=== PATIENT | female | born 1945 | race Caucasian/White ===

== ENCOUNTER → 2018-01-04 11:22 | Outpatient (REF) | payer MEDICARE, SELFPAY ==
[2018-01-04 14:04] LABS: Basophils # 0.1 K/mm3 (0-0.2); Basophils % 1.3 % (0.1-2.0); Eosinophils # 0.3 K/mm3 (0.0-0.4); Eosinophils % 4.2 % (0.1-12.0); Hematocrit 48.7 % (37.0-47.0); Hemoglobin 14.9 g/dL (12.2-16.2); Lymphocytes % 26.8 K/mm3 (10-50); Mean Corpuscular HGB Conc 30.6 g/dL (31.8-35.4); Mean Corpuscular Hemoglobin 26.2 pg (27.0-31.2); Mean Corpuscular Volume 85.8 fl (81-99); Mean Platelet Volume 8.5 fl (7.4-10.4); Monocytes # 0.5 K/mm3 (0.1-1.0); Monocytes % 6.2 % (1.7-9.3); Neutrophils # 4.6 K/mm3 (1.8-7.8); Neutrophils % 61.6 % (37.0-80.0); Platelet Count 338 K/mm3 (142-424); Red Blood Count 5.68 M/mm3 (4.20-5.40); Red Cell Distribution Width 13.7 % (11.5-17.5); White Blood Count 7.5 K/mm3 (4.8-10.8)
[2018-01-04 15:57] LABS: Alanine Aminotransferase 29 U/L (12-78); Albumin Level 4.1 gm/dL (3.4-5.0); Alkaline Phosphatase 66 U/L (46-116); Anion Gap 13.9 mEq/L (5-15); Aspartate Amino Transferase 19 U/L (15-37); Bilirubin,Total 0.3 mg/dL (0.2-1.0); Blood Urea Nitrogen 19 mg/dL (7-18); Calcium 11.8 mg/dL (8.5-10.1); Carbon Dioxide 26 mmol/L (21.0-32.0); Chloride 102 mmol/L (98-107); Chol/HDL Ratio 4.6 (1-3.5); Cholesterol 237 mg/dL (140-200); Creatinine,Serum 0.91 mg/dL (0.55-1.02); Estimated Glomerular Filt Rate 61 ml/min (>60); GFR (African American) 74 ML/MIN (>60); Glucose 103 mg/dL (74-106); HDL Cholesterol 52 mg/dL (29-89); LDL Cholesterol 158 mg/dL (0-130); Potassium 4.9 mmoL/L (3.5-5.1); Sodium 137 mmol/L (136-145); T4 (Thyroxine) 11.7 ug/dl (4.7-13.3); Total Protein,Serum 8.1 gm/dL (6.4-8.2); Triglycerides 137 mg/dL (30-200); VLDL Cholesterol 27 mg/dL (0-40)
[2018-01-04 16:34] LABS: Amphetamine/Metha Screen,Urine Negative ng/mL (<1000); Barbiturates Screen,Urine Negative ng/mL (<200); Benzodiazepines Screen,Urine Negative ng/mL (200); Cannabinoid Screen,Urine Negative ng/mL (<50); Cocaine Screen,Urine Negative ng/g (<300); Methadone Screen,Urine Negative ng/mL (<300); Opiate Screen,Urine Negative ng/mL (<300); Phencyclidine Screen,Urine Negative ng/mL (<25)
[2018-01-06 08:05] LABS: Vitamin D 25 Hydroxy 37.4 ng/mL (30.0-100.0)
== END ==
LOC: LAB 11:22
PROVIDERS: Visit Provider Nurse Practitioner Family
DX: I10 Essential (primary) hypertension (principal); Z79.899 Other long term (current) drug therapy
CPT/HCPCS: 80053; 80061; 80305; 82652; 84436; 84443; 85025

== ENCOUNTER → 2018-10-25 10:13 | Outpatient (CLI) | payer MEDICARE, SELFPAY ==
[2018-10-25 10:44] LABS: Basophils # 0.1 K/mm3 (0-0.2); Basophils % 0.5 % (0.1-2.0); Eosinophils # 0.2 K/mm3 (0.0-0.4); Eosinophils % 1.5 % (0.1-12.0); Hematocrit 42.6 % (37.0-47.0); Hemoglobin 13.8 g/dL (12.2-16.2); Lymphocytes # 2.5 K/mm3 (0.7-4.5); Lymphocytes % 25.7 % (10-50); Mean Corpuscular HGB Conc 32.4 g/dL (31.8-35.4); Mean Corpuscular Hemoglobin 27.5 pg (27.0-31.2); Mean Corpuscular Volume 84.8 fl (81-99); Monocytes # 0.7 K/mm3 (0.1-1.0); Monocytes % 7.3 % (1.7-9.3); Neutrophils # 6.3 K/mm3 (1.8-7.8); Neutrophils % 64.9 % (37.0-80.0); Platelet Count 280 K/mm3 (142-424); Red Blood Count 5.03 M/mm3 (4.20-5.40); Red Cell Distribution Width 14.1 % (11.5-17.5); White Blood Count 9.7 K/mm3 (4.8-10.8)
[2018-10-25 11:26] LABS: Alanine Aminotransferase 35 U/L (12-78); Albumin Level 3.8 gm/dL (3.4-5.0); Alkaline Phosphatase 63 U/L (46-116); Anion Gap 11.2 mEq/L (5-15); Aspartate Amino Transferase 17 U/L (15-37); Bilirubin,Total 0.3 mg/dL (0.2-1.0); Blood Urea Nitrogen 18 mg/dL (7-18); Calcium 11.3 mg/dL (8.5-10.1); Carbon Dioxide 29 mmol/L (21.0-32.0); Chloride 104 mmol/L (98-107); Cholesterol 233 mg/dL (140-200); Creatinine,Serum 0.91 mg/dL (0.55-1.02); Estimated Glomerular Filt Rate 61 ml/min (>60); Free T4 (Free Thyroxine) 0.96 ng/dl (0.76-1.46); GFR (African American) 74 ML/MIN (>60); Glucose 75 mg/dL (74-106); HDL Cholesterol 58 mg/dL (29-89); LDL Cholesterol 153 mg/dL (0-130); Potassium 4.2 mmoL/L (3.5-5.1); Sodium 140 mmol/L (136-145); Thyroid Stimulating Hormone 0.82 uIU/ml (0.358-3.740); Total Protein,Serum 7.8 gm/dL (6.4-8.2); Triglycerides 110 mg/dL (30-200); VLDL Cholesterol 22 mg/dL (0-40)
[2018-10-25 11:27] LABS: C-Reactive Protein < 0.2 mg/L (0.0-0.9)
[2018-10-25 11:34] LABS: Erythrocyte Sedimentation Rate 32 mm/hr (0-30)
[2018-10-26 12:46] LABS: Vitamin D 25 Hydroxy 34.3 ng/mL (30.0-100.0)
== END ==
PROVIDERS: Visit Provider Nurse Practitioner Family
DX: R53.83 Other fatigue (principal); M25.50 Pain in unspecified joint; E78.5 Hyperlipidemia, unspecified; M25.532 Pain in left wrist
CPT/HCPCS: 36415; 80053; 80061; 82652; 84439; 84443; 85025; 85651; 86140

== ENCOUNTER 2019-12-05 13:57 | Emergency (ER) | payer MEDICARE, SELFPAY ==
--- NOTE | 2019-12-05 14:11 | XR_ITS ---
PROCEDURE: XR WRIST RT MIN 3V CLINICAL INDICATION: PAIN COMPARISON: No exams were available for comparison FINDINGS: There are mild osteoarthritic changes at the navicular trapezium joint and 1st metacarpal-carpal joint. No fracture or dislocation. No lytic or blastic change. IMPRESSION: Mild osteoarthritis Dictated by: Des Moore MD 12/05/2019 15:08 Electronically signed by Des Moore MD in [place] 12/05/2019 15:08
[2019-12-05 14:17] VITALS: BP 116/61; PULSE 96; RESP 22; TEMP 36.8; O2SAT 95; BMI 30.2
--- NOTE | 2019-12-05 14:33 | HMH.EDUTC ---
[facility] – [place], [place] Disposition Condition on Discharge: Good Time of Disposition: 15:07 <Gretta Juarez - Last Filed: 12/05/19 15:08> Condition on Discharge: Good <Blaine Dominguez - Last Filed: 12/05/19 16:19> Clinical Impression: Osteoarthritis Wrist pain Qualifiers: Laterality: right Qualified Code(s): M25.531 - Pain in right wrist Disposition: Still a Patient Instructions: DI for Acute Pain -- Adult Prescriptions: Nabumetone 750 mg PO BID 30 Days #60 tab Transmission Status: Pending to [facility] Referrals: Wilmar Cross MD [Primary Care Provider] - As needed Medical Decision Making - Moo Inquiry Pt receiving controlled substance: No Moo was queried for this patient: No - Radiology Data #1 Image(s): Wrist Image Reviewed: Yes I reviewed the patient's radiology image - Reevaluation(s) Time: 15:00 <Gretta Juarez - Last Filed: 12/05/19 15:08> - CT Data CT Scan: Other (Wrist) Time Received: 16:[address] Reviewed: Yes: I have reviewed the patient's CT results Preliminary Findings: Abnormal (Arthritis) <Blaine Dominguez - Last Filed: 12/05/19 16:19> Vital Signs: 12/05/19 14:17 12/05/19 15:13 Temperature 98.2 F 98.2 F Temperature Source Oral Oral Pulse Rate [Right Brachial] 96 H 96 H Respiratory Rate 22 22 Blood Pressure [Right Arm] 116/61 116/61 Blood Pressure Mean [Right Arm] 79 79 Blood Pressure Source [Right Arm] Automatic Cuff Automatic Cuff Blood Pressure Position [Right Arm] Sitting Sitting 02 Sat by Pulse Oximetry 95 95 Oxygen Delivery Method Room Air Room Air - Radiology Data #1 Irregularity noted in wrist, arthritis, discussed with ED physician and patient being transferred to ED for CT of wrist for further evaluation (Gretta Juarez) - Reevaluation(s) Reevaluation #1: Notes viewed from previous visit with PCP in Jul 2019 patient had similar complaints of wrist pain/swelling. Spoke with ER physician Dr Dominguez and he looked at xray and recommended that patient be transferred to ED for CTscan of wrist due to having pain and swelling on and off for 6mths. Patient states that she is unsure if her insurance will cover, Spoke with someone about her insurance and it would cover ER so patient agreed to go, called ED and patient was placed in room 10 (Gretta Juarez) [facility] – [place], [place] HPI - General Mode of Arrival: Ambulatory Source of Information: Patient Limitations: No Limitations Description of Symptoms (Recalled from Triage Doc. by RN): PATIENT C/O RIGHT WRIST PAIN X 1 MONTH, NO KNOWN INJURY. SHE STATES SHE SAW HER PCP FOR IT WHO SENT HER FOR X-RAY, HOWEVER PATIENT NEVER CAME HERE TO GET THE X-RAY. CAP REFILL <3 AND POSITIVE RADIAL PULSE HEENT Symptoms (Recalled from RN notes): No Resp Symptoms (Recalled from RN notes): No Skin Symptoms (Recalled from RN notes): No MS Symptoms (Recalled from RN notes): Yes Functional Status (Recalled from RN notes): WNL - History of Present Illness Provider Complaint: Patient states that she seen PCP she thinks about a month ago for same complaint States that she has been having pain and swelling in her right wrist States that at times pain and swelling is worse States that PCP wanted her to have and xray but she didnt come and get it because it started feeling better but now it is hurting and swelling again so she came in to get it checked Denies known injury States that pain this time started after moving some furniture around and pain is worse with movement - Worker's Comp Is this a Worker's Comp case?: No <Gretta Juarez - Last Filed: 12/05/19 15:08> <Blaine Dominguez - Last Filed: 12/05/19 16:19> - General Stated complaint: right wrist swollen hurts Time Seen by Provider: 12/05/19 14:20 - Related Data Home Medications Medication Instructions Recorded Confirmed Atorvastatin Calcium [Atorvastatin See Rx Instructions .ROUTE .COMPLEX 12/05/19 12/05/19 10mg Tab] Lisinopril/Hydrochlorothiazide See Rx Instructions .ROUTE .C
--- NOTE | 2019-12-05 15:05 | PC.NURSE ---
PATIENT SENT TO ER PER Dewayne ORTEGA APRN FOR FURTHER EVALUATION AND CT
[2019-12-05 15:13] VITALS: BP 116/61; PULSE 96; RESP 22; TEMP 36.8; O2SAT 95; BMI 30.2
--- NOTE | 2019-12-05 15:16 | CT_ITS ---
PROCEDURE: CT WRIST RT WO CON CLINICAL HISTORY: pain Severe wrist pain, COMPARISON: XR WRIST RT MIN 3V from 12/05/2019 TECHNIQUE: Axial images obtained with sagittal and coronal reformats. All CT scans at the facility use one or more dose reduction, viz: automated exposure control, ma/kV adjustment per patient size (including targeted exams where dose is matched to indication, i.e. head), or iterative reconstruction technique. FINDINGS: There are osteoarthritic changes of the 1st metacarpal-carpal joint and the scapho trapezium joint. Small calcific density is present at the tip of the ulnar styloid process which could represent an avulsion injury possibly old. Please correlate with clinical findings. Cystic changes are present involving the lunate and the trapezium. No abnormal fluid collections or other significant anomalies are evident. IMPRESSION: Mild osteoarthritic changes. Nonspecific cystic changes of the trapezium and lunate. Small calcific density at the ulnar styloid which may represent an old injury. Dictated by: Des Moore MD 12/05/2019 15:56 Electronically signed by Des Moore MD in [place] 12/05/2019 15:56
[2019-12-05 16:27] VITALS: BP 132/70; PULSE 92; RESP 18; TEMP 36.8; O2SAT 98
== END 2019-12-05 16:29 | disposition home or self-care (01) ==
LOC: UTC 15:08 → ER 15:09
PROVIDERS: Emergency Provider Family Medicine; PCP Emergency Medicine
DX: M25.531 Pain in right wrist (principal); M19.90 Unspecified osteoarthritis, unspecified site; F17.210 Nicotine dependence, cigarettes, uncomplicated
CPT/HCPCS: 73110; 73200; 99282

== ENCOUNTER → 2020-03-18 08:54 | Outpatient (CLI) | payer MEDICARE, SELFPAY ==
[2020-03-18 12:11] LABS: Coronavirus 19 IgG Antibody Negative (Negative); Coronavirus 19 IgM Antibody Negative (Negative)
== END ==
PROVIDERS: Visit Provider Ophthalmology
DX: Z01.818 Encounter for other preprocedural examination (principal)
CPT/HCPCS: 36415; 86328

== ENCOUNTER 2020-03-19 08:50 | Day surgery (SDC) | payer MEDICARE, SELFPAY ==
[2020-03-13 10:42] VITALS: BMI 32.2
[2020-03-19 09:25] VITALS: BP 139/72; PULSE 82; RESP 18; TEMP 36.4; O2SAT 82
[2020-03-19 10:17] VITALS: BP 118/59; PULSE 86; RESP 24; O2SAT 98
== END 2020-03-19 10:17 | disposition home or self-care (01) ==
LOC: OUTP 08:52
PROVIDERS: PCP Emergency Medicine; Visit Provider Ophthalmology
PROC: (CPT 66821; principal; 2020-03-19 09:30)
DX: H57.89 Other specified disorders of eye and adnexa (principal); Z96.1 Presence of intraocular lens; H02.839 Dermatochalasis of unspecified eye, unspecified eyelid; I10 Essential (primary) hypertension; E78.5 Hyperlipidemia, unspecified; M19.90 Unspecified osteoarthritis, unspecified site; Z79.899 Other long term (current) drug therapy; H26.493 Other secondary cataract, bilateral
CPT/HCPCS: 66821

== ENCOUNTER → 2021-02-07 16:56 | Outpatient (CLI) | payer MEDICARE, SELFPAY ==
[2021-02-07 17:25] LABS: Basophils # 0.1 K/mm3 (0-0.2); Basophils % 0.7 % (0.1-2.0); Eosinophils # 0.2 K/mm3 (0.0-0.4); Eosinophils % 2.7 % (0.1-12.0); Hematocrit 41.3 % (37.0-47.0); Hemoglobin 13.7 g/dL (12.2-16.2); Lymphocytes # 2.2 K/mm3 (0.7-4.5); Lymphocytes % 28.1 % (10-50); Mean Corpuscular HGB Conc 33.1 g/dL (31.8-35.4); Mean Corpuscular Hemoglobin 27.8 pg (27.0-31.2); Mean Corpuscular Volume 84.1 fl (81-99); Mean Platelet Volume 8.6 fl (7.4-10.4); Monocytes # 0.7 K/mm3 (0.1-1.0); Monocytes % 8.4 % (1.7-9.3); Neutrophils # 4.8 K/mm3 (1.8-7.8); Neutrophils % 60.1 % (37.0-80.0); Platelet Count 306 K/mm3 (142-424); Red Blood Count 4.91 M/mm3 (4.20-5.40); Red Cell Distribution Width 13.8 % (11.5-17.5)
[2021-02-07 17:29] LABS: Alanine Aminotransferase 17 U/L (12-78); Albumin Level 3.8 g/dl (3.5-5.0); Albumin/Globulin Ratio 1.2 (1.1-1.8); Alkaline Phosphatase 67 U/L (38-126); Anion Gap 12.6 mEq/L (5-15); Aspartate Amino Transferase 25 U/L (14-36); Bilirubin,Total 0.4 mg/dl (0.2-1.3); Blood Urea Nitrogen 20 mg/dl (7-17); Calcium 10.7 mg/dl (8.4-10.2); Carbon Dioxide 26 mmol/L (22.0-30.0); Chloride 104 mmol/L (98-107); Chol/HDL Ratio 3.9 (1-3.5); Cholesterol 154 mg/dl (140-200); Estimated Glomerular Filt Rate 70 ml/min (>60); GFR (African American) 85 ML/MIN (>60); Globulin 3.1 g/dL (1.3-3.2); Glucose 121 mg/dl (74-100); HDL Cholesterol 40 mg/dl (40-60); Potassium 4.6 mmoL/L (3.5-5.1); Sodium 138 mmol/L (136-145); Total Protein,Serum 6.9 g/dl (6.3-8.2); Triglycerides 234 mg/dl (30-150); VLDL Cholesterol 47 mg/dL (0-40)
[2021-02-07 17:39] LABS: Direct LDL Cholesterol 83.18 mg/dL (100-129)
[2021-02-07 17:45] LABS: 25-OH Vitamin D, Total 37.9 ng/mL (30-100); T4 (Thyroxine) 10.4 ug/dl (5.53-11.0)
[2021-02-07 17:58] LABS: Thyroid Stimulating Hormone 0.97 uIU/mL (0.465-4.68)
== END ==
PROVIDERS: Visit Provider Nurse Practitioner Family
DX: E78.5 Hyperlipidemia, unspecified (principal); M19.90 Unspecified osteoarthritis, unspecified site; R53.83 Other fatigue; E83.52 Hypercalcemia; M25.531 Pain in right wrist; E66.3 Overweight; Z68.32 Body mass index [BMI] 32.0-32.9, adult; F17.210 Nicotine dependence, cigarettes, uncomplicated
CPT/HCPCS: 80053; 80061; 82306; 84436; 84443; 85025

== ENCOUNTER 2021-02-16 12:49 | Emergency (ER) | payer MEDICARE, SELFPAY ==
--- NOTE | 2021-02-16 12:53 | XR_ITS ---
PROCEDURE INFORMATION: Exam: XR Left Knee Exam date and time: 02/16/2021 12:53 PM Age: 75 years old Clinical indication: Pain; Knee; Left; Additional info: Pain and swelling TECHNIQUE: Imaging protocol: XR Left knee. Views: 3 views. COMPARISON: No relevant prior studies available. FINDINGS: Bones/joints: No acute fracture or dislocation. Knee joint spaces are well preserved. Tiny periarticular spurs of the medial femoral condyle and medial tibial plateau, and at the superior pole of the patella. Moderately large knee joint effusion.There are no lytic skeletal lesions seen. Soft tissues: Medial soft tissue swelling. Vasculature: Atherosclerotic calcified plaques in the superficial femoral artery. IMPRESSION: 1. No acute fracture or dislocation. 2. Moderately large knee joint effusion. 3. Minimal degenerative spurring in the knee and patellofemoral joint. No significant joint narrowing. 4. Atherosclerotic disease. 5. Soft tissue swelling.
[2021-02-16 13:26] VITALS: BP 103/66; PULSE 84; RESP 16; TEMP 36.6; O2SAT 97; BMI 32.4
--- NOTE | 2021-02-16 13:29 | HMH.EDUTC ---
[facility] Disposition Clinical Impression: Osteoarthritis Qualifiers: Osteoarthritis location: knee Osteoarthritis type: primary Laterality: left Qualified Code(s): M17.12 - Unilateral primary osteoarthritis, left knee Disposition: Home, Self-Care Condition on Discharge: Good Instructions: Osteoarthritis Additional Instructions: Weight bearing as tolerated rest Ice with cold pack for 20 minutes remove may repeat for comfort every hour Obed wrap for support and swelling no less in the shower. Be sure not too tight but not to lose either Elevate with leg above your heart as much as possible to help reduce swelling and therefore pain Ibuprofen every 6 hours as needed for pain or inflammation. If needs something more you can take Tylenol every 4 hours as needed If improving any do not need to follow-up you can bring begin exercising 2-3 weeks after injury. Follow-up immediately if new or worsening symptoms or no noticeable improvement over the next 3-5 days. call pcp tomorrow for appointment Prescriptions: predniSONE [Prednisone 20mg Tab] 20 mg PO BID #10 tab Transmission Status: Pending to [facility] Referrals: Wilmar Cross MD [Primary Care Provider] - Time of Disposition: 13:35 Medical Decision Making - Moo Inquiry Pt receiving controlled substance: No Vital Signs: 02/16/21 13:26 Temperature 97.8 F Temperature Source Oral Pulse Rate [Right Brachial] 84 Respiratory Rate 16 Blood Pressure [Right Arm] 103/66 L Blood Pressure Mean [Right Arm] 78 Blood Pressure Source [Right Arm] Automatic Cuff Blood Pressure Position [Right Arm] Sitting 02 Sat by Pulse Oximetry 97 Oxygen Delivery Method Room Air Orders (Tests/Meds): ORDERS Category Date Time Status XR knee LT 3V Stat Exams 02/16/21 12:53 Taken [facility] HPI - General Chief complaint: Urgent [facility] Stated complaint: Lt knee swollen, unknown origin Time Seen by Provider: 02/16/21 13:29 Mode of Arrival: Ambulatory Source of Information: Patient Limitations: No Limitations Description of Symptoms (Recalled from Triage Doc. by RN): PATIENT C/O SWELLING TO LEFT KNEE X 1 WEEK HEENT Symptoms (Recalled from RN notes): No Resp Symptoms (Recalled from RN notes): No Skin Symptoms (Recalled from RN notes): No MS Symptoms (Recalled from RN notes): Yes Functional Status (Recalled from RN notes): WNL - History of Present Illness Provider Complaint: 75 yr old female presents for left knee pain for 1 week. pt states no known injury. pt states pain with walking - Related Data Previous Rx's Medication Instructions Recorded atorvastatin 10 mg tablet See Rx Instructions .ROUTE 11/21/20 .COMPLEX #90 tab lisinopril 20 See Rx Instructions .ROUTE 11/21/20 mg-hydrochlorothiazide 12.5 mg .COMPLEX #90 tab tablet albuterol sulfate 90 mcg/actuation 2 puff INHALATION Q4-6H PRN #6.7 g 02/07/21 aerosol inhaler fluticasone furoate 100 1 inh INHALATION DAILY #28 each 02/07/21 mcg-vilanterol 25 mcg/dose inhalation powder predniSONE [Prednisone 20mg 20 mg PO BID #10 tab 02/16/21 Tab] Allergies Allergy/AdvReac Type Severity Reaction Status Date / Time No Known Allergies Allergy Verified 02/07/21 15:04 - Worker's Comp Is this a Worker's Comp case?: No [facility] [place] History - Hepatitis A Screen Drug use history?: No High risk sexual behaviors?: No History of sexually transmitted infection?: No Currently employed?: No Childcare worker?: No Do you have indoor plumbing?: Yes Do you have electricity?: Yes Attestation statement:: This patient has been screened for Hepatitis A risk factors. I have reviewed the patient's past medical history: Yes Medical History: Reports:: Hyperlipidemia, Hypertension Denies:: Cancer, Diabetes Mellitus Type 1, Diabetes Mellitus Type 2, Internal Pacemaker, MRSA, Seizures Comment: Arthritis, Veins pop easy Laterality Cases: Bilateral: Tonsillectomy Other Surgeries: Yes: Hysterect
[2021-02-16 13:38] VITALS: BP 103/66; PULSE 84; RESP 16; TEMP 36.6; O2SAT 97
== END 2021-02-16 13:47 | disposition home or self-care (01) ==
PROVIDERS: Emergency Provider Nurse Practitioner Family; PCP Emergency Medicine
DX: M17.12 Unilateral primary osteoarthritis, left knee (principal); I10 Essential (primary) hypertension; E78.5 Hyperlipidemia, unspecified; F17.210 Nicotine dependence, cigarettes, uncomplicated; Z79.899 Other long term (current) drug therapy
CPT/HCPCS: G0463; 73562; 96372; 99202

== ENCOUNTER → 2021-03-18 08:52 | Outpatient (CLI) | payer MEDICARE, SELFPAY ==
--- NOTE | 2021-03-18 08:53 | CA_ITS ---
APPROVED REPORT EXAM: Comprehensive 2D, Doppler, and color-flow Echocardiogram Media Intern: Brittany Sheldon RVT Ht: 4 ft 10 in Wt: 166lbs BSA: 1.68 BP: 103/66 mmHg Indications: SOA,SMOKER,OBESITY,HTN,HLD TDS-OVERLAYING LUNG 2D Dimensions LVOT 2.21 cm (M/F) 1.5-2.5 LA Volume 15.40 mL LA Volume Index 9.16 mL/m2 (M/F) 16-34 M-Mode Dimensions RVDd 2.07 cm (0.9-2.6) LA Diam 3.20 cm (1.9-4.0) LVDd 4.26 cm (3.5-5.7) Ao Diam 2.95 cm (2.0-3.7) LVDs 2.72 cm (3.5-5.7) IVSd 0.93 cm (0.6-1.1) PWd 0.57 cm (0.6-1.1) EF (Teich) 66.20% FS 36.20% EDV (Teich) 81.30 mL TAPSE 2.14 (<1.7) ESV (Teich) 27.50 mL LV Diastology E Decel Time 217.00 (160-240 msec) E/A Ratio 0.7 MED E' 5.40 (< 7 cm/sec) E'/MED E' Ratio 10.56 (>14) LAT E' 6.80 (<10 cm/sec) E/LAT E' Ratio 8.38 (>14) Aortic Valve AI PHT 477.00 ms AO Peak GR. 3.40 mmHg Mitral Valve MV E Max Carmelo. 57.00 (40-130 cm/s) MV A Velocity 78.00 (40-130 cm/s) E/A Ratio 0.73 MV Decel. Time 217.00 (160-240 ms) MV PHT 63.00 ms Pulmonary Valve PV Peak Velocity 83.00 (50-150 cm/s) Tricuspid Valve TR P. Velocity 264.00 cm/s RAP Estimate 10.00 mmHg RVSP 37.80 mmHg Left Ventricle Technically difficult study because of the patient factors and poor acoustic windows. Left atrium is mildly enlarged, left ventricle is normal size, mild concentric left ventricular hypertrophy, visually estimated ejection fraction 55% with no regional wall motion abnormality, grade 1 diastolic dysfunction seen without tissue Doppler evidence of raise left atrial pressure. Right Ventricle Right atrium and right ventricle are normal size and contractility. Aortic Valve Aortic valve is minimally thickened and fibrosed, there is no aortic stenosis or aortic insufficiency. Mitral Valve Mitral valve grossly normal, there is trace mitral regurgitation Tricuspid Valve Tricuspid grossly normal, there is trace tricuspid regurgitation, calculated right ventricular systolic pressure is 38 mmHg. Pulmonic Valve Pulmonic valve is poorly visualized. Great Vessels Aortic root is normal size. Pericardium No significant pericardial effusion noted. Conclusion 1. Mildly dilated, normal left ventricular size, mild concentric left ventricular hypertrophy, visually estimated ejection fraction 55% with no regional wall motion abnormality, grade 1 diastolic dysfunction seen without tissue Doppler evidence of raise left atrial pressure. 2. Trace mitral and tricuspid regurgitation, calculated right ventricular systolic pressure is 38 mmHg. 3. No significant pericardial effusion noted. Electronically signed by : Ad Alatorre MD 03/18/2021 19:34:41
--- NOTE | 2021-03-18 09:50 | PC.NURSE ---
PFT completed without incident. Albuterol 0.083% given via HHN, per written protocol, Pt tolerated tx well.
== END ==
PROVIDERS: PCP Emergency Medicine; Visit Provider Nurse Practitioner Family
DX: R06.02 Shortness of breath (principal)
CPT/HCPCS: 93306; 94060; 94726; 94729

== ENCOUNTER → 2021-07-15 11:00 | Outpatient (CLI) | payer MEDICARE, SELFPAY ==
--- NOTE | 2021-07-15 11:00 | CT_ITS ---
FINAL REPORT CLINICAL HISTORY: lung cancer screening FINDINGS: Low-Dose Chest CT CTDI vol (mGy): 2.90 DLP (mGy-cm): 95.34 Axial images were obtained from the lung apex to the mid abdomen by computed tomography. Low-dose protocol was utilized. FINDINGS: CHEST: There is no axillary adenopathy. There is no hilar or mediastinal adenopathy. The heart is proper size. There is minimal pericardial fluid measuring about 10 mm. There is no pleural effusion. Limited images of the upper abdomen are unremarkable. Lung window images demonstrate a 12 mm noncalcified, spiculated mass in the left upper lobe which is best seen on images 25 and 26 of series 4. IMPRESSION: 12 mm nodule in the left upper lobe as described. Lung RADS category 4A. Highly concerning for neoplasia, recommend PET CT. Reviewed, Interpreted and Dictated by Ventura Farah MD Transcribed by Lauren Culver Authenticated by Ventura Farah MD on 07/16/2021 08:21:19 AM [facility]
== END ==
PROVIDERS: PCP Emergency Medicine; Visit Provider Internal Medicine Pulmonary Disease
DX: Z87.891 Personal history of nicotine dependence (principal); Z12.2 Encounter for screening for malignant neoplasm of respiratory organs
CPT/HCPCS: 71271

== ENCOUNTER 2023-02-25 15:56 | Emergency (ER) | payer MEDICARE, SELFPAY ==
[2023-02-25 15:58] VITALS: BP 178/87; PULSE 109; RESP 25; TEMP 37.1; O2SAT 95; BMI 24.1
--- NOTE | 2023-02-25 16:03 | HMH.EDGENADL ---
Discharge Plan Disposition Patient Disposition: Home, Self-Care Condition: Good Prescriptions Prescriptions: New oxycodone 5 mg tablet 5 mg PO Q6H PRN (Reason: pain) 3 Days Qty: 12 0RF Referrals Follow up/Referrals: Wilmar Cross MD [Primary Care Provider] - See instructions Activity Restrictions/Add. Instructions Additional Instructions/Restrictions: We spoke with [facility] on the phone. A Dr. Beck. They will be arranging follow-up for next week. They should call you to schedule that appointment. Please take Tylenol and ibuprofen as needed for pain. Please return to the emergency department if you develop any new or worsening symptoms or become concerned for your health. Clinical Impressions Clinical Impression: Renal mass, Hypercalcemia Instructions Patient Instructions: DI for Hypercalcemia Discharge ED Provider: David Wan Adult HPI General Chief complaint: PAIN Stated complaint: nausea, abd pain Time Seen by Provider: 02/25/23 16:01 History of Present Illness HPI narrative: 77-year-old female reportedly previously healthy, does not normally see doctors, presents with right flank pain for the last couple of days. Patient also has right upper quadrant and right lower quadrant pain. Denies any urinary symptoms. Denies any change in bowel function. Reports no fevers. Patient reports no chest pain or shortness of breath. She smokes, does not drink, does not use any recreational drugs. No midline back pain. Neurologic changes. No history of abdominal surgeries in the past. Related Data Previous Rx's Medication Instructions Recorded oxycodone 5 mg tablet 5 mg PO Q6H PRN pain 3 days #12 02/25/23 tabs Allergies Allergy/AdvReac Type Severity Reaction Status Date / Time No Known Allergies Allergy Verified 05/13/21 11:31 [facility] Disclaimer: The information contained in this section may have been updated after the patient was seen, as this information can be updated by other users. Medical History (Updated 02/25/23 @ 18:37 by David Wan MD) Hypercalcemia Hyperlipidemia Social History Smoking Status: Current every day smoker tobacco type: cigarettes packs per day: 1 alcohol intake: never substance use type: denies use current occupational status: other Travel in the last 8 weeks: None household members: none housing: house caffeine: No ROS Obtained: Yes All systems reviewed & no additional complaints except as documented Physical Exam General General appearance: alert and in no apparent distress Head Head exam: atraumatic and normocephalic Eye Eye exam: Present normal appearance, PERRL and EOMI ENT ENT exam: Present normal oropharynx and normal external ear exam Neck Neck exam: Present normal inspection and full ROM Chest Chest inspection: Present normal inspection and symmetric chest wall rise; Absent tenderness Respiratory Respiratory exam: Present normal lung sounds bilaterally; Absent respiratory distress Cardiovascular Cardiovascular exam: Present regular rate and normal rhythm Abdominal Exam Abdominal exam: Present soft and tenderness (Moderate right upper quadrant and right lower quadrant tenderness); Absent distention or guarding Extremities Exam Extremities exam: Present normal inspection; Absent edema or joint swelling Back Exam Back exam: Present normal inspection, tenderness and CVA tenderness (R) Neurological Exam Neurological exam: Present alert and oriented X3; Absent motor sensory deficit Psychiatric Psychiatric exam: Present normal affect and normal mood Skin Skin exam: Present warm, dry and normal color Lymphatic Lymphatic Findings: no adenopathy Medical Decision Making Medical Records Medical records reviewed: Yes I reviewed the patient's medical records. Moo Inquiry Pt receiving controlled substance: No Moo was queried for this patient: No Vital Signs: 02/25/23 15:58
--- NOTE | 2023-02-25 16:22 | CT_ITS ---
PROCEDURE INFORMATION: Exam: CT Abdomen And Pelvis With Contrast Exam date and time: 02/25/2023 5:01 PM Age: 77 years old Clinical indication: Abdominal pain; Additional info: Ruq, rlq, R flank pain TECHNIQUE: Imaging protocol: Computed tomography of the abdomen and pelvis with contrast. Radiation optimization: All CT scans at this facility use at least one of these dose optimization techniques: automated exposure control; mA and/or kV adjustment per patient size (includes targeted exams where dose is matched to clinical indication); or iterative reconstruction. Contrast material: ISOVUE; Contrast volume: 75 ml; Contrast route: IV; REPORTING DATA: Count of CT and Cardiac NM exams in prior 12 months: This patient has received 0 known CTs and 0 known cardiac nuclear medicine studies in the 12 months prior to the current study. COMPARISON: CT LUNG SCREENING 07/15/2021 11:05 AM FINDINGS: Lungs: Bibasilar subsegmental atelectasis noted. Pleural spaces: Small right pleural effusion Liver: Subcentimeter hypodensity in the right hepatic lobe is too small to accurately characterize Gallbladder and bile ducts: Gallbladder is distended without radiopaque cholelithiasis. No biliary ductal dilation. Pancreas: No peripancreatic fluid stranding. No main pancreatic ductal dilation. Spleen: No splenomegaly. Adrenal glands: The adrenal glands are normal. Kidneys and ureters: There is a locally invasive hyperattenuating region essentially replacing the right renal parenchyma. The lesion involves right collecting system and measures approximately 5.7 x 6.6 x 8.7 cm. There is local invasion of the right posterior perirenal space and posterior renal fascia. Punctate nonobstructive left nephrolithiasis. Stomach and bowel: Pancolonic diverticulosis noted without acute inflammatory change. No bowel wall thickening or distention. Appendix: A normal appendix is identified. Intraperitoneal space: Small amount of retroperitoneal free fluid Vasculature: Aorta is nonaneurysmal. The aorta demonstrates moderate atherosclerotic calcification. The inferior vena cava is narrowed and displaced anteriorly but appears grossly patent. Right renal vein is patent. The right renal artery is narrowed and traverses a conglomerate of retroperitoneal lymphadenopathy. Lymph nodes: Bulky retroperitoneal necrotic lymphadenopathy Urinary bladder: Unremarkable as visualized. Reproductive: Status post hysterectomy. Bones/joints: Multilevel degenerative changes of the included spine. Soft tissues: Unremarkable. IMPRESSION: 1. 5.7 x 6.6 x 8.7 cm locally invasive right renal lesion. Local invasion of the right posterior perirenal space and posterior renal fascia noted. Findings altogether are suspicious for primary renal (more likely) versus less likely urothelial neoplasm 2. Bulky necrotic retroperitoneal lymphadenopathy. A conglomerate of lymphadenopathy narrows and displaces the inferior vena cava which appears grossly patent COMMENTS: Consistent with the [employer]'s Incidental Findings Committee white paper (J Am Jessica Radiol 2018): Any incidental renal lesion less than 1 cm or classified as too small to characterize, or any incidental cystic renal lesion characterized as simple-appearing, is likely benign. No follow-up imaging is recommended for these lesions per consensus recommendations based on imaging criteria.
[2023-02-25 16:30] VITALS: BP 159/67; PULSE 100; RESP 18; O2SAT 94
[2023-02-25 16:48] LABS: Basophils # 0.1 K/mm3 (0-0.2); Basophils % 0.5 % (0.1-2.0); Eosinophils # 0.2 K/mm3 (0.0-0.4); Hematocrit 41.7 % (37.0-47.0); Hemoglobin 13.1 g/dL (12.2-16.2); Lymphocytes # 1.6 K/mm3 (0.7-4.5); Lymphocytes % 14.6 % (10-50); Mean Corpuscular HGB Conc 31.4 g/dL (31.8-35.4); Mean Corpuscular Hemoglobin 26.4 pg (27.0-31.2); Mean Corpuscular Volume 84.2 fl (81-99); Monocytes # 0.9 K/mm3 (0.1-1.0); Monocytes % 7.8 % (1.7-9.3); Neutrophils # 8.3 K/mm3 (1.8-7.8); Neutrophils % 75.1 % (37.0-80.0); Platelet Count 483 K/mm3 (142-424); Red Blood Count 4.96 M/mm3 (4.20-5.40); White Blood Count 11.1 K/mm3 (4.8-10.8)
[2023-02-25 16:52] LABS: Alanine Aminotransferase 24 U/L (12-78); Albumin Level 3.8 g/dl (3.5-5.0); Albumin/Globulin Ratio 0.9 (1.1-1.8); Alkaline Phosphatase 99 U/L (38-126); Anion Gap 16.5 mEq/L (5-15); Aspartate Amino Transferase 30 U/L (14-36); Bilirubin,Total 0.4 mg/dl (0.2-1.3); Blood Urea Nitrogen 14 mg/dl (7-17); Calcium 10.9 mg/dl (8.4-10.2); Carbon Dioxide 26 mmol/L (22.0-30.0); Chloride 100 mmol/L (98-107); Creatinine Clearance Estimated 45 mL/min (50-200); Estimated Glomerular Filt Rate 81 ml/min (>60); GFR (African American) 98 ML/MIN (>60); Globulin 4.2 g/dL (1.3-3.2); Glucose 125 mg/dl (74-100); Lipase 21 U/L (23-300); Potassium 3.5 mmoL/L (3.5-5.1); Sodium 139 mmol/L (136-145)
[2023-02-25 17:00] VITALS: BP 159/77; PULSE 96; RESP 20; O2SAT 95
[2023-02-25 17:30] VITALS: BP 148/68; PULSE 86; RESP 20; O2SAT 96
[2023-02-25 18:01] VITALS: BP 116/74; PULSE 78; RESP 20; O2SAT 96
--- NOTE | 2023-02-25 18:20 | PC.NURSE ---
JAYLEN Wan at discussing test results with pt.
--- NOTE | 2023-02-25 18:27 | PC.NURSE ---
rounded on pt at this time, pt sitting up in bed, states no needs at this time. Call button in reach
--- NOTE | 2023-02-25 18:30 | PC.NURSE ---
placed call to [facility] for medical oncology consult
--- NOTE | 2023-02-25 18:35 | PC.NURSE ---
JAYLEN SOL speaking with [facility]
[2023-02-25 18:49] VITALS: BP 163/77; PULSE 67; RESP 20; TEMP 36.7; O2SAT 97
== END 2023-02-25 19:09 | disposition home or self-care (01) ==
PROVIDERS: Emergency Provider Emergency Medicine; PCP Emergency Medicine
DX: R10.11 Right upper quadrant pain (principal); R10.31 Right lower quadrant pain; E78.5 Hyperlipidemia, unspecified; N28.9 Disorder of kidney and ureter, unspecified; F17.210 Nicotine dependence, cigarettes, uncomplicated; R59.9 Enlarged lymph nodes, unspecified
CPT/HCPCS: 74177; 80053; 83690; 85025; 96361; 96374; 99285; Q9967

== ENCOUNTER 2023-03-06 15:55 | Observation (INO) | payer MEDICARE, SELFPAY ==
[2023-03-06] VITALS (10 sets, daily range): BP systolic 109–148; BP diastolic 58–71; PULSE 79–106; RESP 16–19; TEMP 36.6–37.1; O2SAT 94–96; BMI 25.0
--- NOTE | 2023-03-06 16:00 | PC.NURSE ---
DR POZO AT BEDSIDE
--- NOTE | 2023-03-06 16:01 | CT_ITS ---
PROCEDURE INFORMATION: Exam: CT Head Without Contrast Exam date and time: 03/06/2023 4:42 PM Age: 77 years old Clinical indication: Injury or trauma; Fall; Blunt trauma (contusions or hematomas); Additional info: Fall, down since last night TECHNIQUE: Imaging protocol: Computed tomography of the head without contrast. Radiation optimization: All CT scans at this facility use at least one of these dose optimization techniques: automated exposure control; mA and/or kV adjustment per patient size (includes targeted exams where dose is matched to clinical indication); or iterative reconstruction. REPORTING DATA: Count of CT and Cardiac NM exams in prior 12 months: This patient has received [address] and 0 known cardiac nuclear medicine studies in the 12 months prior to the current study. COMPARISON: No relevant prior studies available. 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 No acute infarct. No hemorrhage. Involutional changes of the brain, commensurate with age. No mass effect. Cerebral ventricles: No ventriculomegaly. Paranasal sinuses: No significant inflammation. No fluid levels. Mastoid air cells: Visualized mastoid air cells are well aerated. Bones/joints: Unremarkable. No acute fracture. Soft tissues: Unremarkable. IMPRESSION: No acute intracranial abnormality.
--- NOTE | 2023-03-06 16:01 | CT_ITS ---
PROCEDURE INFORMATION: Exam: CT Pelvis Without Contrast; Skeletal Exam date and time: 03/06/2023 4:52 PM Age: 77 years old Clinical indication: Injury or trauma; Fall; Blunt trauma (contusions or hematomas); Bilateral; Groin; Additional info: Fall, down since last night TECHNIQUE: Imaging protocol: Computed tomography of the pelvis without contrast. Exam focused on the skeleton. Radiation optimization: All CT scans at this facility use at least one of these dose optimization techniques: automated exposure control; mA and/or kV adjustment per patient size (includes targeted exams where dose is matched to clinical indication); or iterative reconstruction. REPORTING DATA: Count of CT and Cardiac NM exams in prior 12 months: This patient has received [address] and 0 known cardiac nuclear medicine studies in the 12 months prior to the current study. COMPARISON: CT ABDOMEN PELVIS W CON 02/25/2023 5:01 PM FINDINGS: Kidneys and ureters: Previously described locally invasive right renal lesion with invasion of the right posterior pararenal space is incompletely visualized. Previously described bulky retroperitoneal lymphadenopathy, greater on the right is incompletely visualized but not dramatically changed. These findings have been recently described on CT dated 02/25/2023. Stomach and bowel: Moderate diverticulosis is present in the distal colon. There is no evidence of colitis/diverticulitis. Appendix: A normal appendix is identified. Reproductive: The uterus is either atrophic or absent. No adnexal masses. The left ovary is normal. The right ovary is normal. Intraperitoneal space: Findings within the lower abdomen are described in the associated CT of the abdomen and pelvis report from the same date and time. Please reference that report for additional information. Vasculature: The aorta and iliac arteries demonstrate severe atherosclerotic calcification. There are a few benign phleboliths in the pelvis. There is mild contour bulge to the anterior aspect of the distal aorta measuring approximately 2.1 by 2.1 cm. Bones/joints: There are mild degenerative changes of the sacroiliac joints. There are mild degenerative changes of the symphyseal pubic joint. The visualized lower lumbosacral spine demonstrates mild degenerative changes. 2 small foci of increased density in the proximal left femur are nonspecific but may reflect enostoses. Findings within the lumbar spine are described in the associated CT of the lumbar spine report from the same date and time. Please reference that report for additional information. Soft tissues: No focal soft tissue hematomas. No soft tissue edema. There is a tiny fat-containing umbilical hernia. IMPRESSION: 1. No acute posttraumatic osseous abnormality. 2. Previously described locally invasive right renal lesion with bulky retroperitoneal adenopathy is not optimally evaluated on current exam, but more optimally described on the CT of the abdomen and pelvis dated 02/25/2023. Please reference that report for additional information. 3. Tiny fat- containing umbilical hernia.
--- NOTE | 2023-03-06 16:01 | CT_ITS ---
PROCEDURE INFORMATION: Exam: CT Cervical Spine Without Contrast Exam date and time: 03/06/2023 4:45 PM Age: 77 years old Clinical indication: Injury or trauma; Fall; Blunt trauma; Additional info: Fall, down since last night TECHNIQUE: Imaging protocol: Computed tomography of the cervical spine without contrast. Radiation optimization: All CT scans at this facility use at least one of these dose optimization techniques: automated exposure control; mA and/or kV adjustment per patient size (includes targeted exams where dose is matched to clinical indication); or iterative reconstruction. REPORTING DATA: Count of CT and Cardiac NM exams in prior 12 months: This patient has received [address] and 0 known cardiac nuclear medicine studies in the 12 months prior to the current study. COMPARISON: CT HEAD/BRAIN WO CON 03/06/2023 4:42 PM FINDINGS: Bones/joints: There is grade 1 anterior spondylolisthesis of C4 on C5. There is slight retrolisthesis of C6 on C7. Alignment is otherwise intact from skull base to T1. The atlantooccipital articulations are preserved. The facet joints are appropriately aligned. The predental interval appears normal. The cervical spine demonstrates moderate discogenic and spondylitic degenerative changes at multiple levels. This is predominantly manifest by endplate discogenic degenerative changes and marginal osteophytes, most prominent at the C5 through C7 levels. Prominent multilevel facet degenerative arthropathy is also present. Prominent hypertrophic multilevel facet degenerative arthropathy is also present. No compression fractures. Vertebral body heights are preserved. There is mild neural foraminal narrowing on the right at the C2-C3 level. There is mild right and marked leftward neural foraminal narrowing at the C3-C4 level. There is marked bilateral neural foraminal narrowing at the C4-C5 level. There is marked right and mild leftward neural foraminal narrowing at the C5-C6 level. Mild posterior bar/disc produces mild ventral effacement upon the thecal sac, greater in a right parasagittal distribution and mild central canal stenosis. There is marked bilateral neural foraminal narrowing at the C6-C7 level. Posterior bar/disc produces moderate ventral effacement upon the thecal sac and moderate central canal stenosis. Paranasal sinuses: The visualized portions of the sinuses are clear. Mastoid air cells: The visualized mastoid sinuses are clear Prevertebral and retropharyngeal spaces: No prevertebral soft tissue edema. Lungs: Lung apices are normal. Thyroid: The visualized thyroid gland is normal. Lymph nodes: There are pathologic bulky lymph nodes in the left supraclavicular region. One of the largest nodes measures 18 mm in short axis. Soft tissues: No focal soft tissue hematomas. IMPRESSION: 1. No acute posttraumatic osseous abnormality. 2. Moderate multilevel discogenic and spondylitic degenerative changes as described. 3. Bulky pathologic adenopathy in the visualized left supraclavicular region. Differential includes metastatic disease or lymphoma.
--- NOTE | 2023-03-06 16:01 | ECG_ITS ---
APPROVED REPORT Exam: Resting ECG HR:94 bpm ECG Measurements Heart Rate 94 AXES CA 112 P 26 QRSd 87 QRS -6 QT 358 T 29 QTc 410 Conclusion SINUS RHYTHM WITH SHORT CA INTERVAL WITH OCCASIONAL SUPRAVENTRICULAR PREMATURE COMPLEXES POSSIBLE ANTERIOR MYOCARDIAL INFARCTION , OF INDETERMINATE AGE [30 ms Q WAVE IN V3/V4, OR R < 0.2 mV IN V4] INFERIOR MYOCARDIAL INFARCTION , PROBABLY OLD [40+ ms Q WAVE AND/OR ST/T ABNORMALITY IN II/aVF] ABNORMAL ECG UNCONFIRMED REPORT Electronically signed by : Migel Krueger MD 03/07/2023 12:34:15
--- NOTE | 2023-03-06 16:01 | CT_ITS ---
PROCEDURE INFORMATION: Exam: CT Lumbar Spine Without Contrast Exam date and time: 03/06/2023 4:50 PM Age: 77 years old Clinical indication: Injury or trauma; Fall; Blunt trauma (contusions or hematomas); Additional info: Fall, down since last night TECHNIQUE: Imaging protocol: Computed tomography of the lumbar spine without contrast. Radiation optimization: All CT scans at this facility use at least one of these dose optimization techniques: automated exposure control; mA and/or kV adjustment per patient size (includes targeted exams where dose is matched to clinical indication); or iterative reconstruction. REPORTING DATA: Count of CT and Cardiac NM exams in prior 12 months: This patient has received [address] and 0 known cardiac nuclear medicine studies in the 12 months prior to the current study. COMPARISON: CT THORACIC SPINE WO CON 03/06/2023 4:47 PM FINDINGS: Bones/joints: The thoracolumbar spine demonstrates moderate degenerative changes at multiple levels. This is manifest by endplate discogenic degenerative changes and marginal osteophytes. There is also multilevel intervertebral disc space narrowing, most prominent involving the lower thoracic vertebral bodies with vacuum disc phenomenon spanning the T10 through T12 levels. Vertebral body heights are preserved. No compression fractures. No spondylolisthesis. There is no evidence of acute fracture. Posterior bar/disc at the T11-12 level posteriorly is located in a right parasagittal distribution produces right anterolateral ventral effacement upon the thecal sac and contributes to moderate rightward neural foraminal narrowing. Posterior bar/disc at the T12-L1 level produces mild ventral effacement upon the thecal sac and mild central canal stenosis. Mild right neural foraminal narrowing is present. Posterior bar/disc at the L1-L2 level produces mild ventral effacement upon the thecal sac and mild central canal stenosis. Moderate bilateral neural foraminal narrowing is present at L1-L2. Lungs: Nonspecific minor left basilar streaky opacities suggest atelectasis or parenchymal scarring. Vasculature: The aorta demonstrates mild atherosclerotic calcification. Atherosclerotic vascular calcifications involve the origin of the celiac and SMA arteries as well as bilateral renal arteries without significant stenosis. Atherosclerotic vascular calcifications involve the origin of the great vessels. Soft tissues: No significant soft tissue edema. No focal soft tissue hematomas. Previously described locally invasive right renal lesion with invasion of the right posterior pararenal space is incompletely visualized. Previously described bulky retroperitoneal lymphadenopathy, greater on the right is incompletely visualized but not dramatically changed. These findings have been recently described on CT dated 02/25/2023. Bulky left supraclavicular pathologic adenopathy is present, incompletely visualized. There is moderate atherosclerotic calcification of the coronary arteries. A small hiatal hernia is present, incompletely visualized. IMPRESSION: No acute posttraumatic osseous abnormality. Moderate multilevel discogenic and spondylitic degenerative changes as described above. Previously described locally invasive right renal lesion with invasion of the right posterior pararenal space is incompletely visualized. Previously described bulky retroperitoneal lymphadenopathy, greater on the right, is incompletely visualized but not dramatically changed. These findings have been recently described on CT of the abdomen dated 02/25/2023. Bulky left supraclavicular pathologic adenopathy incompletely visualized, also described on the associated CT of t
--- NOTE | 2023-03-06 16:01 | XR_ITS ---
PROCEDURE INFORMATION: Exam: XR Chest Exam date and time: 03/06/2023 4:52 PM Age: 77 years old Clinical indication: Injury or trauma; Fall; Blunt trauma (contusions or hematomas); Additional info: Fall, down since last night TECHNIQUE: Imaging protocol: Radiologic exam of the chest. Views: 1 view. COMPARISON: CT LUNG SCREENING 07/15/2021 11:05 AM FINDINGS: Lungs: Lung volumes are mildly diminished. The lungs appear clear. No focal areas of consolidation. Pleural spaces: No pleural effusions. Negative for pneumothorax. Heart/Mediastinum: Cardiac silhouette and pulmonary vasculature are within range of normal. Bones/joints: There is no evidence of acute fracture. The thoracic spine demonstrates mild degenerative changes at multiple levels. IMPRESSION: Negative for an acute cardiopulmonary abnormality.
--- NOTE | 2023-03-06 16:01 | CT_ITS ---
PROCEDURE INFORMATION: Exam: CT Thoracic Spine Without Contrast Exam date and time: 03/06/2023 4:47 PM Age: 77 years old Clinical indication: Injury or trauma; Fall; Blunt trauma (contusions or hematomas); Additional info: Fall, down since last night TECHNIQUE: Imaging protocol: Computed tomography of the thoracic spine without contrast. Radiation optimization: All CT scans at this facility use at least one of these dose optimization techniques: automated exposure control; mA and/or kV adjustment per patient size (includes targeted exams where dose is matched to clinical indication); or iterative reconstruction. REPORTING DATA: Count of CT and Cardiac NM exams in prior 12 months: This patient has received [address] and 0 known cardiac nuclear medicine studies in the 12 months prior to the current study. COMPARISON: CT CERVICAL SPINE WO CON 03/06/2023 4:45 PM FINDINGS: Bones/joints: The thoracolumbar spine demonstrates moderate degenerative changes at multiple levels. This is manifest by endplate discogenic degenerative changes and marginal osteophytes. There is also multilevel intervertebral disc space narrowing, most prominent involving the lower thoracic vertebral bodies with vacuum disc phenomenon spanning the T10 through T12 levels. Vertebral body heights are preserved. No compression fractures. No spondylolisthesis. There is no evidence of acute fracture. Posterior bar/disc at the T11-12 level posteriorly is located in a right parasagittal distribution produces right anterolateral ventral effacement upon the thecal sac and contributes to moderate rightward neural foraminal narrowing. Posterior bar/disc at the T12-L1 level produces mild ventral effacement upon the thecal sac and mild central canal stenosis. Mild right neural foraminal narrowing is present. Posterior bar/disc at the L1-L2 level produces mild ventral effacement upon the thecal sac and mild central canal stenosis. Moderate bilateral neural foraminal narrowing is present at L1-L2. Soft tissues: No significant soft tissue edema. No focal soft tissue hematomas. Vasculature: The aorta demonstrates mild atherosclerotic calcification. Atherosclerotic vascular calcifications involve the origin of the celiac and SMA arteries as well as bilateral renal arteries without significant stenosis. Atherosclerotic vascular calcifications involve the origin of the great vessels. Lymph nodes: Bulky left supraclavicular pathologic adenopathy is present, incompletely visualized. Lungs: Nonspecific minor left basilar streaky opacities suggest atelectasis or parenchymal scarring. Coronary arteries: There is moderate atherosclerotic calcification of the coronary arteries. Kidneys and ureters: Previously described locally invasive right renal lesion with invasion of the right posterior pararenal space is incompletely visualized. Previously described bulky retroperitoneal lymphadenopathy, greater on the right is incompletely visualized but not dramatically changed. These findings have been recently described on CT dated 02/25/2023. Other findings: A small hiatal hernia is present, incompletely visualized. IMPRESSION: 1. No acute posttraumatic osseous abnormality. 2. Moderate multilevel discogenic and spondylitic degenerative changes as described above. 3. Previously described locally invasive right renal lesion with invasion of the right posterior pararenal space is incompletely visualized. Previously described bulky retroperitoneal lymphadenopathy, greater on the right, is incompletely visualized but not dramatically changed. These findings have been recently described on CT of the abdomen dated 02/25/2023. 4. Bulky left supraclavicular pathologic adenopathy
--- NOTE | 2023-03-06 16:05 | HMH.EDGENADL ---
Discharge Plan Disposition Patient Disposition: Admitted Clinical Impressions Clinical Impression: General weakness, Metastatic cancer, Elevated CK Fall Qualifiers: Encounter type: initial encounter Qualified Code(s): W19.XXXA - Unspecified fall, initial encounter Discharge ED Provider: Demetria Cho General Adult HPI General Chief complaint: Fall Stated complaint: Fall Time Seen by Provider: 03/06/23 15:58 Mode of Arrival: EMS Source of Information: Patient and EMS Limitations: No Limitations Description of Symptoms (Recalled from ER Triage Doc. by RN): PT REPORTS FALL AT HOME AROUND 0100 THIS AM. PT STATES SHE GOT DIZZY AND FELL. REPORTS PAIN TO BUTTOCKS. PT ALERT AND ORIENTED, GCS 15 History of Present Illness HPI narrative: This patient is a 77-year-old female with a history of hyperlipidemia, hyperglycemia, and recent diagnosis of likely metastatic renal cancer presented to the emergency department by EMS for evaluation with concern for a fall. Patient reports that last night, she was making herself dinner when she became lightheaded and fell on the way to the kitchen. She notes that she has been weak and had trouble getting around since the fall. EMS corroborates this after speaking with the patient's son. She states that when she fell, she was unable to get up because she was having trouble putting weight on her leg secondary to pain in her butt. She did not hit her head or lose consciousness. She does not take any blood thinners. She states that she laid there all the way from last night until her son came and found her on the floor around 1:00 PM today. She denies any other concerns, such as recent fevers, chills, chest pain, shortness of breath, vision changes, numbness, tingling, unilateral weakness, vertigo, abdominal pain, nausea, vomiting, changes in bowel movements, dysuria, polyuria, rashes, swelling, or other concerns. She states that she was well prior to the fall. Related Data Home Medications Medication Instructions Recorded Confirmed No Known Home Medications 03/06/23 03/06/23 Allergies Allergy/AdvReac Type Severity Reaction Status Date / Time No Known Allergies Allergy Verified 03/03/23 10:56 [facility] Disclaimer: The information contained in this section may have been updated after the patient was seen, as this information can be updated by other users. Medical History Hypercalcemia Hyperlipidemia Social History (Updated 03/06/23 @ 21:56 by Tresa De Los Santos RN) Smoking Status: Current every day smoker tobacco type: cigarettes packs per day: 1 alcohol intake: never substance use type: denies use current occupational status: retired and other Travel in the last 8 weeks: None household members: none housing: house lives independently: Yes caffeine: No ROS Obtained: Yes All systems reviewed & no additional complaints except as documented Physical Exam General General appearance: alert and in no apparent distress Head Head exam: atraumatic and normocephalic Eye Eye exam: Present normal appearance, PERRL and EOMI ENT ENT exam: Present normal exam, normal oropharynx, mucous membranes moist and normal external ear exam Neck Neck exam: Present normal inspection, full ROM and trachea midline; Absent tenderness Chest Chest inspection: Present normal inspection and symmetric chest wall rise; Absent tenderness Respiratory Respiratory exam: Present normal lung sounds bilaterally; Absent respiratory distress, wheezes, stridor or accessory muscle use Cardiovascular Cardiovascular exam: Present regular rate and normal rhythm Abdominal Exam Abdominal exam: Present soft; Absent distention, tenderness or guarding Extremities Exam Extremities exam: Present normal inspection, full ROM and normal capillary refill; Absent tenderness or edema Back Exam Back exam: Present normal inspection, full ROM and tenderness (sacral
--- NOTE | 2023-03-06 18:45 | PC.NURSE ---
pts resting in bed nothing needed, son and daughter in law at bs
--- NOTE | 2023-03-06 18:45 | PC.NURSE ---
Dr Cho spoke with luba
--- NOTE | 2023-03-06 18:46 | PC.NURSE ---
Dr Cho asking about labs, clinical lab clerk advised 10 min.
[2023-03-06 18:48] LABS: Microscopic, Urine URINE MICROSCOPIC (MICROSCOPIC)
[2023-03-06 18:49] LABS: Basophils % 0.2 % (0.1-2.0); Eosinophils % 0.1 % (0.1-12.0); Hematocrit 38.7 % (37.0-47.0); Hemoglobin 12.6 g/dL (12.2-16.2); Lymphocytes % 7.4 % (10-50); Mean Corpuscular HGB Conc 32.5 g/dL (31.8-35.4); Mean Corpuscular Hemoglobin 26.7 pg (27.0-31.2); Mean Corpuscular Volume 82.3 fl (81-99); Mean Platelet Volume 8.2 fl (7.4-10.4); Monocytes # 0.8 K/mm3 (0.1-1.0); Monocytes % 5.9 % (1.7-9.3); Neutrophils # 12.1 K/mm3 (1.8-7.8); Neutrophils % 86.4 % (37.0-80.0); Platelet Count 492 K/mm3 (142-424)
[2023-03-06 18:51] LABS: Chloride 96 mmol/L (98-107); Potassium 3.5 mmoL/L (3.5-5.1); Sodium 136 mmol/L (136-145)
[2023-03-06 18:52] LABS: MANUAL DIFFERENTIAL MANUAL DIFFERENTIAL (MANUAL DIFF)
[2023-03-06 18:53] LABS: Alanine Aminotransferase 35 U/L (12-78); Aspartate Amino Transferase 68 U/L (14-36); Blood Urea Nitrogen 18 mg/dl (7-17); Creatinine Clearance Estimated 41 mL/min (50-200); Estimated Glomerular Filt Rate 70 ml/min (>60); GFR (African American) 84 ML/MIN (>60)
[2023-03-06 18:54] LABS: Albumin Level 3.4 g/dl (3.5-5.0); Albumin/Globulin Ratio 0.9 (1.1-1.8); Alkaline Phosphatase 94 U/L (38-126); Anion Gap 14.5 mEq/L (5-15); Bilirubin,Total 0.4 mg/dl (0.2-1.3); Calcium 11.3 mg/dl (8.4-10.2); Carbon Dioxide 29 mmol/L (22.0-30.0); Creatine Kinase 327 U/L (30-135); Globulin 3.8 g/dL (1.3-3.2); Glucose 114 mg/dl (74-100); Total Protein,Serum 7.2 g/dl (6.3-8.2)
[2023-03-06 18:59] LABS: Appearance,Urine CLEAR (Clear); Bilirubin,Urine Negative (Negative); Blood, Urine 3+ (Negative); Color,Urine YELLOW (Yellow); Glucose,Urine (UA) Negative (Negative); Ketones,Urine 1+ (Negative); Leukocyte Esterase,Urine Negative (Negative); Nitrate,Urine Negative (Negative); Protein,Urine 2+ (Negative); Urobilinogen,Urine 0.2 EU/dl (0.2)
[2023-03-06 19:26] LABS: Bacteria,Urine 1+ /lpf; WBC,Urine Occasional #/hpf (0-3)
--- NOTE | 2023-03-06 20:01 | PC.NURSE ---
Called admissions to give room #
--- NOTE | 2023-03-06 20:12 | PC.NURSE ---
Rounded on pt. No needs voiced at this time. Family at BS.
--- NOTE | 2023-03-06 20:27 | EXP.HP ---
History of Present Illness *Admission Date: 03/06/23 *Reason for visit:: fall at home *History of present illness: This is a 77-year-old female with PMHx of hyperlipidemia, COPD, hyperglycemia, and recent diagnosis of likely metastatic renal cancer presented to the emergency department by EMS, after being found down at home. Patient reported that last night, she became lightheaded, dizzy and fell on the way to the kitchen. She was not able to get herself up from 4.30pm until her son found her next day around 1p. She stated that when she fell, she was unable to get up because she was having trouble putting weight on her leg secondary to pain in her butt. She did not lose consciousness. She is not currently on any blood thinners. She denies any other concerns, such as recent fevers, chills, chest pain, shortness of breath, vision changes, numbness, tingling, unilateral weakness, vertigo, abdominal pain, nausea, vomiting, changes in bowel movements, dysuria, polyuria, rashes, swelling, or other concerns. Admitted for observation and further work up. [facility] Disclaimer: The information contained in this section may have been updated after the patient was seen, as this information can be updated by other users. Medical History (Updated 03/07/23 @ 19:53 by Fantasma Hopson MD) COPD (chronic obstructive pulmonary disease) Hypercalcemia Hyperlipidemia Social History (Updated 03/06/23 @ 21:56 by Tresa De Los Santos RN) Smoking Status: Current every day smoker tobacco type: cigarettes packs per day: 1 alcohol intake: never substance use type: denies use current occupational status: retired and other Travel in the last 8 weeks: None household members: none housing: house lives independently: Yes caffeine: No Review of Systems Review of Systems Review of systems:: pertinent systems reviewed and negative unless documented below Meds Home Medications and Allergies Home Medications Medication Instructions Recorded Confirmed Type oxycodone-acetaminophen 7.5 mg-325 1 tab PO QIDP PRN Moderate Pain 03/07/23 03/07/23 History mg tablet (Scale Score 5-6) polyethylene glycol 3350 17 17 g PO DAILY Constipation 03/07/23 03/07/23 History gram/dose oral powder New Prescriptions to Start Prescriptions: Allergies Allergy/AdvReac Type Severity Reaction Status Date / Time No Known Allergies Allergy Verified 03/03/23 10:56 Exam Data for Last 24 hours Vital signs and Labs for Last 24 Hours: Temp Pulse Resp BP Pulse Ox O2 Del Method 97.8 F 88 17 131/58 L 95 Room Air 03/06/23 15:55 03/06/23 20:00 03/06/23 20:00 03/06/23 20:00 03/06/23 20:00 03/06/23 20:00 Laboratory Results - last 24 hr 03/06/23 16:24: WBC 14.0 H, RBC 4.70, Hgb 12.6, Hct 38.7, MCV 82.3, MCH 26.7 L, MCHC 32.5, RDW 14.0, Plt Count 492 H, MPV 8.2, Neut % (Auto) 86.4 H, Lymph % (Auto) 7.4 L, Edgar % (Auto) 5.9, Eos % (Auto) 0.1, Baso % (Auto) 0.2, Neut # (Auto) 12.1 H, Lymph # (Auto) 1.0, Edgar # (Auto) 0.8, Eos # (Auto) 0.0, Baso # (Auto) 0.0, Sodium 136, Potassium 3.5, Chloride 96 L, Carbon Dioxide 29, Anion Gap 14.5, BUN 18 H, Creatinine 0.80, Estimated Creat Clear 41, Estimated GFR 70, Est GFR ( Amer) 84, Glucose 114 H, Calcium 11.3 H, Total Bilirubin 0.4, AST 68 H, ALT 35, Alkaline Phosphatase 94, Total Creatine Kinase 327 H, Total Protein 7.2, Albumin 3.4 L, Globulin 3.8 H, Albumin/Globulin Ratio 0.9 L 03/06/23 17:40: Urine Color Yellow, Urine Appearance Clear, Urine pH 6.0, Ur Specific [place] 1.020, Urine Protein 2+, Urine Glucose (UA) Negative, Urine Ketones 1+, Urine Blood 3+, Urine Nitrate Negative, Urine Bilirubin Negative, Urine Urobilinogen 0.2, Ur Leukocyte Esterase Negative, Urine RBC 10-20, Urine WBC Occasional, Ur Squamous Epith Cells None, Urine Bacteria 1+ I & O for Last 24 hours: Intake & Output 03/03/23 03/04/23 03/05/23 03/06/23 23:59 23:59 23:59 23:59 Weight 54.431 kg Constitutional Const
[2023-03-06 20:39] LABS: Hypochromasia 1+; Lymphocytes % 5 % (10-50); Monocytes % 6 % (2-9); Neutrophils % 89 % (42-76); Platelet Estimate Slight Increase; Total Cells Counted 100
--- NOTE | 2023-03-06 20:53 | PC.NURSE ---
report called to Tresa SNEED #[id number]
--- NOTE | 2023-03-06 21:09 | PC.NURSE ---
PT ARRIVED TO FLOOR AT THIS TIME
[2023-03-07 04:00] VITALS: BP 136/88; PULSE 86; RESP 18; TEMP 36.5; O2SAT 92; BMI 27.0
--- NOTE | 2023-03-07 05:09 | PC.NURSE ---
Once settled in room, patient has rested through the night. Per family patient has not been alert. When questioning patient she seems to be alert to self, and where she is at and why she is here. She did have to be redirected at to what year it was. No other issues were noted in exam. Patient remains on room air.
[2023-03-07 05:26] VITALS: BP 151/77; BP 154/67; BP 159/73; PULSE 100; PULSE 88; PULSE 93
[2023-03-07 07:18] LABS: Basophils % 0.2 % (0.1-2.0); Eosinophils % 0.3 % (0.1-12.0); Hemoglobin 12.4 g/dL (12.2-16.2); Lymphocytes # 1.2 K/mm3 (0.7-4.5); Lymphocytes % 10.7 % (10-50); Mean Corpuscular HGB Conc 31.8 g/dL (31.8-35.4); Mean Corpuscular Hemoglobin 26.7 pg (27.0-31.2); Mean Corpuscular Volume 83.9 fl (81-99); Mean Platelet Volume 8.2 fl (7.4-10.4); Monocytes # 0.8 K/mm3 (0.1-1.0); Monocytes % 6.9 % (1.7-9.3); Neutrophils # 9.2 K/mm3 (1.8-7.8); Neutrophils % 81.9 % (37.0-80.0); Platelet Count 402 K/mm3 (142-424); Red Blood Count 4.65 M/mm3 (4.20-5.40); Red Cell Distribution Width 14.2 % (11.5-17.5); White Blood Count 11.3 K/mm3 (4.8-10.8)
[2023-03-07 07:23] LABS: Chloride 100 mmol/L (98-107); Potassium 3.5 mmoL/L (3.5-5.1); Sodium 135 mmol/L (136-145)
[2023-03-07 07:25] LABS: Alanine Aminotransferase 28 U/L (12-78); Alkaline Phosphatase 83 U/L (38-126); Anion Gap 13.5 mEq/L (5-15); Aspartate Amino Transferase 57 U/L (14-36); Bilirubin,Total 0.3 mg/dl (0.2-1.3); Blood Urea Nitrogen 19 mg/dl (7-17); Carbon Dioxide 25 mmol/L (22.0-30.0); Creatinine Clearance Estimated 44 mL/min (50-200); Estimated Glomerular Filt Rate 70 ml/min (>60); GFR (African American) 84 ML/MIN (>60)
[2023-03-07 07:26] LABS: Albumin/Globulin Ratio 0.9 (1.1-1.8); Calcium 10.8 mg/dl (8.4-10.2); Chol/HDL Ratio 4.4 (1-3.5); Cholesterol 141 mg/dl (140-200); Globulin 3.5 g/dL (1.3-3.2); Glucose 77 mg/dl (74-100); HDL Cholesterol 32 mg/dl (40-60); Total Protein,Serum 6.5 g/dl (6.3-8.2); Triglycerides 213 mg/dl (30-150); VLDL Cholesterol 43 mg/dL (0-40)
[2023-03-07 07:37] LABS: Direct LDL Cholesterol 63.24 mg/dL (100-129)
[2023-03-07 07:49] LABS: Hemoglobin A1C 6.1 % (4.0-6.0)
[2023-03-07 07:58] VITALS: BP 158/70; PULSE 93; RESP 18; TEMP 37.6; O2SAT 91
--- NOTE | 2023-03-07 09:36 | HMH.PHAINT1 ---
Pharmacy Intervention Comments: MEDICATION RECONCILIATION COMPLETE USING EXTERNAL PHARMACY FILL HISTORY.
--- NOTE | 2023-03-07 12:16 | HMH.PTEV ---
Physical Therapy Evaluation Rehab PT IP Evaluation Start: 03/06/23 20:25 Freq: ONCE Status: Active Protocol: Document 03/07/23 12:13 PHORNE (Rec: 03/07/23 12:16 PHORNE [id number]) Subjective/History History History 77 yowf adm to [facility] with general weakness. She has hx of HLD, COPD, and metastatic renal cancer. She reports she lives alone, 2-3 steps to enter the home, and she uses a RW for ambulation sometimes at baseline. Subjective Subjective Pt currently reports feeling weak, but no c/o pain at this time. Rehab PT IP Eval Objective Appearance Patient Behavior Appropriate Patient Orientation Person,Time Difficulty following instructions none Speech Pattern Clear Ambulation Patient Able to Ambulate Yes Ambulation Observation IP General Gait Pattern Observation Shuffling Step Ambulation Distance (feet) 5 Ambulation Assistive Device Rolling Walker Ambulation Ability Contact Guard/Hand Hold Balance Ability to Arise Able, uses arms to help Sitting Balance Steady, safe Standing Balance Steady, wide stance Dynamic Sitting Balance Ability Good Dynamic Standing Balance Ability Fair Transfers Bed Transfer Ability Minimal x 1 (25% assist) Chair Transfer Ability Contact Guard/Hand Hold Sit to Stand Bed Transfer Ability Contact Guard/Hand Hold Sit to Stand Chair Transfer Ability Contact Guard/Hand Hold ROM All Extremities PT ROM Status WFL MMT All Extremities PT MMT WFL Rehab PT IP prob,goals,plan Problems Date of Evaluation: 03/07/23 PT IP Problems Bed Mobility,Transfers,Gait Rehab Potential Rehab Potential Good Plan PT Intervention Plan Bed Mobility,Transfers,Gait, Therapeutic Exercise PT Plan Frequency Daily Duration LOS Discharge Goals Bed Transfer Ability Contact Guard/Hand Hold Sit to Stand Chair Transfer Ability Supervision/Stand by Ambulation Assistive Device Rolling Walker Ambulation Distance (feet) 20 Discharge Plan PT Discharge Plan Pt is currently appropriate to return home once medically stable with family assistance. Recommend home health therapy as needed. G -code Required No Eval Complexity Eval C
[2023-03-07 15:41] VITALS: BP 153/76; PULSE 92; RESP 18; TEMP 36.5; O2SAT 98
--- NOTE | 2023-03-07 17:28 | PC.NURSE ---
Pt has c/o discomfort to her knee and bottom thisw shift. Has ambulated to BSC and chair this shift. Tolerated poorly. Pt has difficulty sitting up right and needs to be repositioned frequently. Family has visited. rounding in room currently. VSS.
[2023-03-07 19:50] VITALS: BP 148/74; PULSE 91; RESP 18; TEMP 37.3; O2SAT 91
--- NOTE | 2023-03-07 19:51 | EXP.ACUTE.PN ---
Subjective *Date: 03/07/23 *Time: 19:51 Interval history: Patient with waxing and waning alertness today. Family at bedside. Extensive discussion on afternoon rounds. Concern for patient's memory. She knows who she is but thinks she is at [facility]. Interacts well during conversation but has some slight disorientation to place and time. Tolerating p.o. intake without difficulty. Stable on room air. Denies any nausea or vomiting. Complains of right-sided pain that is most comfortable when she leans toward the left in bed. Patient's daughter, son, [id number] at bedside, questions answered. Updated on plan. Medical Exam Vital signs and Labs for Last 24 Hours: Vital Signs Temp Pulse Pulse Pulse Pulse Pulse Resp 03/07/23 18:54 03/07/23 17:00 03/07/23 15:00 03/07/23 15:41 97.7 F 92 H 18 03/07/23 13:00 03/07/23 11:00 03/07/23 09:00 03/07/23 08:00 03/07/23 07:58 99.6 F 93 H 18 03/07/23 05:26 88 93 H 100 H 03/07/23 04:00 97.7 F 86 18 03/07/23 06:47 03/07/23 05:00 03/07/23 03:00 03/07/23 01:00 03/06/23 23:39 03/06/23 23:00 03/06/23 21:00 03/06/23 22:05 98.7 F 91 H 19 03/06/23 20:51 98 F 88 16 03/06/23 20:00 88 17 BP BP BP BP BP Pulse Ox O2 Del Method 03/07/23 18:54 Room Air 03/07/23 17:00 Room Air 03/07/23 15:00 Room Air 03/07/23 15:41 153/76 H 98 03/07/23 13:00 Room Air 03/07/23 11:00 Room Air 03/07/23 09:00 Room Air 03/07/23 08:00 Room Air 03/07/23 07:58 158/70 H 91 L Room Air 03/07/23 05:26 154/67 H 151/77 H 159/73 H 03/07/23 04:00 136/88 92 L Room Air 03/07/23 06:47 Room Air 03/07/23 05:00 Room Air 03/07/23 03:00 Room Air 03/07/23 01:00 Room Air 03/06/23 23:39 Room Air 03/06/23 23:00 Room Air 03/06/23 21:00 Room Air 03/06/23 22:05 127/71 96 Room Air 03/06/23 20:51 128/64 Room Air 03/06/23 20:00 131/58 L 95 Room Air Intake and Output 03/07/23 03/07/23 03/07/23 07:59 15:59 23:59 Intake Total 480 / 1320 480 / 1320 360 / 1320 Output Total 0 / 0 0 / 0 0 / 0 Balance 480 / 1320 480 / 1320 360 / 1320 Intake: Intake, Oral Amount 480 / 1320 480 / 1320 360 / 1320 Output: Output, Urine Amount 0 / 0 0 / 0 0 / 0 Other: Number of Unmeasured Voids 0 0 0 Number of Urine Attends/Diapers 1 Weight 58.332 kg Patient Weight 03/07/23 23:59 Weight 58.332 kg Laboratory Results - last 24 hr 03/06/23 16:24: Total Counted 100, Neutrophils % (Manual) 89 H, Lymphocytes % (Manual) 5 L, Monocytes % (Manual) 6, Platelet Estimate Slight increase, Hypochromasia 1+ 03/07/23 06:44: WBC 11.3 H, RBC 4.65, Hgb 12.4, Hct 39.0, MCV 83.9, MCH 26.7 L, MCHC 31.8, RDW 14.2, Plt Count 402, MPV 8.2, Neut % (Auto) 81.9 H, Lymph % (Auto) 10.7, [place] % (Auto) 6.9, Eos % (Auto) 0.3, Baso % (Auto) 0.2, Neut # (Auto) 9.2 H, Lymph # (Auto) 1.2, [place] # (Auto) 0.8, Eos # (Auto) 0.0, Baso # (Auto) 0.0, Sodium 135 L, Potassium 3.5, Chloride 100, Carbon Dioxide 25, Anion Gap 13.5, BUN 19 H, Creatinine 0.80, Estimated Creat Clear 44, Estimated GFR 70, Est GFR ( Amer) 84, Glucose 77 D, Hemoglobin A1c 6.1 H, Calcium 10.8 H, Magnesium 2.0, Total Bilirubin 0.3, AST 57 H, ALT 28, Alkaline Phosphatase 83, Total Protein 6.5, Albumin 3.0 L D, Globulin 3.5 H, Albumin/Globulin Ratio 0.9 L, Triglycerides 213 H, Cholesterol 141, LDL Cholesterol Direct 63.24 L, VLDL Cholesterol 43 H, HDL Cholesterol 32 L, Cholesterol/HDL Ratio 4.4 H I & O for Labs for Last 24 Hours: Intake & Output 03/04/23 03/05/23 03/06/23 03/07/23 23:59 23:59 23:59 23:59 Intake Total 1320 / 1320 Output Total 0 / 0 Balance 1320 / 1320 Weight 54.431 kg 58.332 kg Constitutional: Present no acute distress, average body habitus and c
[2023-03-08 04:00] VITALS: BP 183/71; PULSE 88; RESP 18; TEMP 37; O2SAT 91; BMI 27.3
--- NOTE | 2023-03-08 05:50 | PC.NURSE ---
Patient has slept most the night. Has not complained of pain or any issues. No issues noted by nurse.
[2023-03-08 06:23] LABS: Chloride 99 mmol/L (98-107); Sodium 135 mmol/L (136-145)
[2023-03-08 06:24] LABS: Potassium 3.4 mmoL/L (3.5-5.1)
[2023-03-08 06:26] LABS: Alanine Aminotransferase 29 U/L (12-78); Albumin Level 2.7 g/dl (3.5-5.0); Albumin/Globulin Ratio 0.8 (1.1-1.8); Alkaline Phosphatase 76 U/L (38-126); Anion Gap 9.4 mEq/L (5-15); Aspartate Amino Transferase 45 U/L (14-36); Bilirubin,Total 0.3 mg/dl (0.2-1.3); Blood Urea Nitrogen 15 mg/dl (7-17); Calcium 10.2 mg/dl (8.4-10.2); Carbon Dioxide 30 mmol/L (22.0-30.0); Creatinine Clearance Estimated 45 mL/min (50-200); Estimated Glomerular Filt Rate 81 ml/min (>60); GFR (African American) 98 ML/MIN (>60); Globulin 3.2 g/dL (1.3-3.2); Glucose 94 mg/dl (74-100); Total Protein,Serum 5.9 g/dl (6.3-8.2)
[2023-03-08 06:27] LABS: Magnesium 1.8 mg/dl (1.6-2.3)
[2023-03-08 06:52] LABS: Basophils % 0.1 % (0.1-2.0); Eosinophils # 0.1 K/mm3 (0.0-0.4); Eosinophils % 0.6 % (0.1-12.0); Hematocrit 37.8 % (37.0-47.0); Hemoglobin 11.7 g/dL (12.2-16.2); Lymphocytes % 10.7 % (10-50); Mean Corpuscular HGB Conc 30.9 g/dL (31.8-35.4); Mean Corpuscular Hemoglobin 25.6 pg (27.0-31.2); Mean Corpuscular Volume 82.8 fl (81-99); Mean Platelet Volume 8.1 fl (7.4-10.4); Monocytes # 0.6 K/mm3 (0.1-1.0); Monocytes % 6.9 % (1.7-9.3); Neutrophils # 7.6 K/mm3 (1.8-7.8); Neutrophils % 81.7 % (37.0-80.0); Platelet Count 366 K/mm3 (142-424); Red Blood Count 4.57 M/mm3 (4.20-5.40); White Blood Count 9.3 K/mm3 (4.8-10.8)
[2023-03-08 08:00] VITALS: BP 162/69; PULSE 93; RESP 16; TEMP 36.6; O2SAT 92
--- NOTE | 2023-03-08 08:18 | EXP.DC.SUM ---
General Admission date:: 03/06/23 Discharge date: 03/08/23 HPI HPI HPI: This is a 77-year-old female with PMHx of hyperlipidemia, COPD, hyperglycemia, and recent diagnosis of likely metastatic renal cancer presented to the emergency department by EMS, after being found down at home. Patient reported that last night, she became lightheaded, dizzy and fell on the way to the kitchen. She was not able to get herself up from 4.30pm until her son found her next day around 1p. She stated that when she fell, she was unable to get up because she was having trouble putting weight on her leg secondary to pain in her butt. She did not lose consciousness. She is not currently on any blood thinners. She denies any other concerns, such as recent fevers, chills, chest pain, shortness of breath, vision changes, numbness, tingling, unilateral weakness, vertigo, abdominal pain, nausea, vomiting, changes in bowel movements, dysuria, polyuria, rashes, swelling, or other concerns. Admitted for observation and further work up. Hospital Course Hospital Course Hospital Course: This is a 77-year-old female with PMHx of hyperlipidemia, hyperglycemia, and recent diagnosis of likely metastatic renal cancer presented to the emergency department by EMS, after being found down at home. Patient reported that night before admission, she became lightheaded, dizzy and fell on the way to the kitchen. During assessment patient is completely asymptomatic, awake and oriented. Able to communicate her needs. Complaining of left leg pain. Initial ER evaluation included head to toe CT scanning, they are negative for acute traumatic process or internal bleed. No hip fracture. Patient's mentation improved during hospitalization. Still has some intermittent mild disorientation as far as where exactly she is but has good understanding of what is going on and answers most questions appropriately. Family at bedside. Discussed going home with 24-hour assistance. Patient independent to go home with care per PT yanet. Stable at this time for discharge. Problems addressed as follows: Encephalopathy, toxic vs metabolic Frequent falls Hypercalcemia -Patient's calcium was 11.3 on admission. Improved to upper limits of normal with IV fluids. Held her opiates during admission. Was recently started on oxycodone 7.5 mg 4 times a day because of new diagnosis of suspected cancer with mass encompassing majority of her right kidney. These medications we suspect made her altered and led to her fall. Recommend Tylenol ibuprofen for pain control at this time. Will establish with home health, referral placed. PT worked with patient during admission. Safe to go home with 24-hour assistance. Her daughter came up from [place] to move in with her for the next month. Patient appears at baseline level of function at this time. Liver mass, suspect cancer -Recent imaging of her abdomen within the past 2 weeks showing large mass encompassing majority of right kidney. Additionally noted to have prominent lymphadenopathy in left supraclavicular region on CTs of her C-spine and thoracic spine. Strong suspicion for metastatic versus diffuse cancer. Previous history of lung nodule 12 mm in size last seen on CT of chest in July 2021. Following with on Wednesday. Family expressed significant concern. Patient expressed little interest in aggressive treatment if it does happen to be cancer. Defer further management to hematology/oncology at /[facility]. -Elevated CK/rhabdomyolysis Likely secondary to being down for extended period. Resolved with fluids. CK of 237 on admission, normalized by day of discharge. -COPD: O2 as needed for goal saturation greater 90%, currently on room air during admission. Treated with DuoNebs every 6 hours as needed for wheezing and shortness of breath. Resume home regimen at discharge. Counseled on benefits of smoking cessation. Spent 40 minutes in dischar
--- NOTE | 2023-03-08 09:46 | HMH.OTEV ---
OT Inpatient Evaluation Rehab OT IP Evaluation Start: 03/06/23 20:25 Freq: ONCE Status: Active Protocol: Document 03/08/23 09:40 [facility] (Rec: 03/08/23 09:45 [facility] [id number]) Rehab OT IP Assessment Subjective History Pt oriented x 2 on arrival. Pt agreeable to engage in therapy evaluation. Pt is a 77 yowf adm to [facility] with general weakness. She has hx of HLD, COPD, and metastatic renal cancer. She reports she lives alone, 2-3 steps to enter the home, and she uses a RW for ambulation sometimes at baseline. Pt also claims she is independent with all ADLs such as dressing, bathing and feeding. She also reports she is independent with all IADLs like cooking, cleaning, and laundry. Pt's son takes her grocery shopping because she does not drive. Pt's daughter has recently come in from [place] to assist her mom at home. Subjective I am going home and my daugther is going to take care of me. Objective Patient Orientation Person,Birthday Upper Extremity Gross ROM WFL Bed Mobility bed mobility-scooting,bed mobility - supine/sit,bed mobility - rolling Assist Level Minimal x 1 (25% assist) Transfer Training Sit/Stand/Step Transfer Assist Level Minimal x 1 (25% assist) Performing Toilet Hygiene Ability Assistance X1 Rehab OT IP prob,goals,plan Problems Date of Evaluation: 03/08/23 OT IP Problems Bed Mobility,Transfers,Balance ,Self care,Safety Rehab Potential Rehab Potential Good Equipment Needs Assistive Devices Rolling / Wheeled Walker Plan OT intervention Plan Bed Mobility,Transfers,Balance ,Self care,Safety,Therapeutic Exercise OT Plan Frequency BID Duration LOS Discharge Goals Bed Mobility Ability Standby Assistance Sit to Stand Chair Transfer Ability Contact Guard/Hand Hold Chair Transfer Ability Contact Guard/Hand Hold Chair Transf
--- NOTE | 2023-03-08 12:04 | SW/DCPLANNER ---
Addendum entered by Sammie Pimentel 03/08/23 13:29: Cherry fabian/ [facility] has accepted this patient and stated that services will begin tomorrow 03/09/23. Original Note: Patient currently resides at home alone but her daughter has came in from [place] to assist her at home. PT/OT evaluated patient and recommended home w/ home health services. Patient is agreeable to home health and prefers to use [facility] at time of discharge. Patient information/order will be faxed to [facility] once medically stable for discharge today.
--- NOTE | 2023-03-08 13:14 | CARE MANAGER ---
Addendum entered by Diane Begum RN 03/08/23 14:04: Patient unable to use a walker safely, needs a w/c in home daily to complete ADLS. Original Note: Patient is limited to very short distances for ambulation and will require a w/c at this time. She was only able to ambulate 5' with PT this morning.
--- NOTE | 2023-03-08 20:23 | CA_ITS ---
FINAL REPORT TECHNIQUE: Real-time imaging was performed of the extracranial carotid arteries in transverse and longitudinal planes, with color duplex evaluation of blood flow velocity. Spectral analysis was performed. The cervical vertebral arteries were also examined. CLINICAL HISTORY: fall/dizziness, smoker, Renal Cell ca mets FINDINGS: NASCET technique is utilized for stenosis evaluation. Right carotid system (centimeters/second): CCA: 94.2 ICA: 103.7 ECA: 107.6 Vertebral artery: Antegrade ICA/CCA ratio: Moderate plaque is identified at the bifurcation. Left carotid system (centimeters/second): CCA: 71.1 ICA: 94.1 ECA: 132.6 Vertebral artery: Antegrade ICA/CCA ratio: 1.32 Moderate plaque is identified at the bifurcation. IMPRESSION: Less than 50% right ICA stenosis. Less than 50% left ICA stenosis. Antegrade flow bilateral vertebral arteries. Moderate plaque was identified, suggesting that correlation with CTA would be helpful. Reviewed, Interpreted and Dictated by Ventura Farah MD Transcribed by Dayna Perez Authenticated and [facility]
--- NOTE | 2023-03-10 15:09 | CARE MANAGER ---
Spoke with patient son for post-discharge phone interview, no issues noted.
== END 2023-03-08 12:32 | disposition home health service (06) ==
LOC: ER 16:26 → 2ND 20:06
PROVIDERS: Nurse Practitioner Family; Admitting Provider Internal Medicine Adolescent Medicine; Emergency Provider Emergency Medicine; PCP Emergency Medicine; Visit Provider Internal Medicine Adolescent Medicine
DX: G92.8 Other toxic encephalopathy (principal); E83.52 Hypercalcemia; R53.1 Weakness; W19.XXXA Unspecified fall, initial encounter; M79.605 Pain in left leg; M25.531 Pain in right wrist; R74.8 Abnormal levels of other serum enzymes; C78.6 Secondary malignant neoplasm of retroperitoneum and peritoneum; N28.89 Other specified disorders of kidney and ureter; E78.5 Hyperlipidemia, unspecified; F17.200 Nicotine dependence, unspecified, uncomplicated; J44.9 Chronic obstructive pulmonary disease, unspecified; R73.9 Hyperglycemia, unspecified; F17.210 Nicotine dependence, cigarettes, uncomplicated; M62.82 Rhabdomyolysis
CPT/HCPCS: 36415; 70450; 71045; 72125; 72128; 72131; 72192; 80053; 80061; 81001; 82550; 83036; 83735; 85007; 85025; 93005; 93880; 97163; 97166; 97530; 99285; G0378

== ENCOUNTER → 2023-03-16 12:53 | Outpatient (CLI) | payer MEDICARE, SELFPAY ==
[2023-03-16 20:22] LABS: T4 (Thyroxine) 6.4 ug/dl (5.53-11.0)
[2023-03-16 20:35] LABS: Thyroid Stimulating Hormone 1.44 uIU/mL (0.465-4.68)
== END ==
PROVIDERS: PCP Emergency Medicine; Visit Provider Emergency Medicine
DX: E83.52 Hypercalcemia (principal)
CPT/HCPCS: 84436; 84443

== ENCOUNTER 2023-03-22 14:34 | Observation (INO) | payer MEDICARE, SELFPAY ==
[2023-03-22] VITALS (8 sets, daily range): BP systolic 138–181; BP diastolic 71–87; PULSE 97–112; RESP 18–27; TEMP 36.6–36.8; O2SAT 91–95; BMI 21.4; BMI 20.6
--- NOTE | 2023-03-22 14:39 | ECG_ITS ---
APPROVED REPORT Exam: Resting ECG HR:112 bpm ECG Measurements Heart Rate 112 AXES MA 119 P 69 QRSd 82 QRS 34 QT 308 T 54 QTc 374 Conclusion SINUS TACHYCARDIA WITH SHORT MA INTERVAL WITH FREQUENT SUPRAVENTRICULAR PREMATURE COMPLEXES LOW QRS VOLTAGE IN PRECORDIAL LEADS [QRS DEFLECTION < 1.0 mV IN CHEST LEADS] ABNORMAL RHYTHM ECG UNCONFIRMED REPORT Electronically signed by : Migel Krueger MD 03/23/2023 17:14:18
--- NOTE | 2023-03-22 15:01 | HMH.EDGENADL ---
Discharge Plan Disposition Patient Disposition: Admitted Chief Complaint: Weakness Prescriptions Prescriptions: No Action ipratropium-albuterol 0.5 mg-3 mg(2.5 mg base)/3 mL solution for nebulization 3 ml inhalation Q4-6H PRN (Reason: shortness of breath) Qty: 180 0RF Trelegy Ellipta 100-62.5-25 mcg blister with device 1 inh inhalation DAILY Qty: 60 2RF nicotine 21-14-7 mg/24 hr patch, TD daily, sequential See Rx Instructions transdermal .COMPLEX Qty: 56 0RF Rx Instructions: apply 1-21 mg NICOTINE PATCH daily for 28 days; follow with 1-14 mg PATCH daily for 14 days, then 1-7mg PATCH daily for 14 days transdermal polyethylene glycol 3350 17 gram/dose powder 17 g PO DAILY acetaminophen 325 mg Tablet 650 mg PO Q4HP PRN (Reason: Fever Or Mild Pain (1-3)) 30 Days Qty: 0 0RF potassium chloride 20 mEq Tablet,Er Particles/Crystals 20 meq PO BID 30 Days Qty: 60 0RF Referrals Follow up/Referrals: Wilmar Cross MD [Primary Care Provider] - See instructions Clinical Impressions Clinical Impression: Hypercalcemia, Sepsis, Hyperparathyroidism, Generalized muscle weakness Discharge ED Provider: Vitor Gu General Adult HPI General Chief complaint: Weakness Stated complaint: Weakness Time Seen by Provider: 03/22/23 15:00 Mode of Arrival: EMS Source of Information: Patient, Relative and EMS Limitations: No Limitations Description of Symptoms (Recalled from ER Triage Doc. by RN): Pt family called EMS for worsening weakness that began over the weekend. THey have been unable to get patient up to bathrom or chair. Pt had a renal bx done at [facility] on Wednesday as they have recently found a spot. History of Present Illness HPI narrative: 77-year-old female with history of unknown renal malignancy, COPD, hypercalcemia, hyperlipidemia, hypertension presenting with weakness. Patient got a renal biopsy at 3 days prior to arrival. Since that time, has been progressively weak at home. Denies confusion, nausea or vomiting, fevers or chills, dysuria hematuria, constipation, diarrhea, abdominal pain, chest pain, or any other concerns. Incision/biopsy site minimally tender. Related Data Home Medications Medication Instructions Recorded Confirmed polyethylene glycol 3350 17 17 g PO DAILY Constipation 03/07/23 03/16/23 gram/dose oral powder Previous Rx's Medication Instructions Recorded acetaminophen 325 mg tablet 650 mg PO Q4HP PRN Fever Or Mild 03/08/23 Pain (1-3) 30 days #0 tabs potassium chloride 20 mEq 20 meq PO BID 30 days #60 tabs 03/08/23 tablet,extended release(part/cryst) nicotine See Rx Instructions transdermal 03/09/23 21mg/24hr-14mg/24hr-7mg/24hr daily .COMPLEX #56 patches transderm patches,sequentl fluticasone fur. 100 mcg-umeclid 1 inh inhalation DAILY #60 ea 03/16/23 62.5 mcg-vilant 25 mcg inhalat.powder (Trelegy Ellipta) ipratropium 0.5 mg-albuterol 3 mg 3 ml inhalation Q4-6H PRN 03/16/23 (2.5 mg base)/3 mL nebulization shortness of breath #180 mL soln Allergies Allergy/AdvReac Type Severity Reaction Status Date / Time No Known Allergies Allergy Verified 03/03/23 10:56 [facility] Disclaimer: The information contained in this section may have been updated after the patient was seen, as this information can be updated by other users. Medical History COPD (chronic obstructive pulmonary disease) Hypercalcemia Hyperlipidemia Social History Smoking Status: Current every day smoker tobacco type: cigarettes packs per day: 1 alcohol intake: never substance use type: denies use current occupational status: retired and other Travel in the last 8 weeks: None household members: none housing: house lives independently: Yes caffeine: No ROS Obtained: Yes All systems reviewed & no additional complaints exc
[2023-03-22 15:18] LABS: Chloride 101 mmol/L (98-107); Potassium 4.3 mmoL/L (3.5-5.1); Sodium 138 mmol/L (136-145)
[2023-03-22 15:20] LABS: VBG Base Excess -0.2 mmol/L (-2.4-2.3); VBG HCO3 24.8 mmol/L (23-30); VBG Oxygen Saturation 99.4 % (50-70); VBG PCO2 42.1 mmol/L (35-51); VBG PH 7.39 mmol/L (7.31-7.41); VBG PO2 151.6 mmol/L (28-40); VBG Total CO2 26.1 mmol/L (23-27)
[2023-03-22 15:21] LABS: Alanine Aminotransferase 34 U/L (12-78); Albumin Level 3.3 g/dl (3.5-5.0); Albumin/Globulin Ratio 0.8 (1.1-1.8); Alkaline Phosphatase 117 U/L (38-126); Anion Gap 14.3 mEq/L (5-15); Aspartate Amino Transferase 48 U/L (14-36); Bilirubin,Total 0.5 mg/dl (0.2-1.3); Blood Urea Nitrogen 27 mg/dl (7-17); Carbon Dioxide 27 mmol/L (22.0-30.0); Creatinine Clearance Estimated 43 mL/min (50-200); Estimated Glomerular Filt Rate 54 ml/min (>60); GFR (African American) 65 ML/MIN (>60); Total Protein,Serum 7.3 g/dl (6.3-8.2)
[2023-03-22 15:22] LABS: Glucose 126 mg/dl (74-100)
[2023-03-22 15:24] LABS: Calcium 12.3 mg/dl (8.4-10.2)
--- NOTE | 2023-03-22 15:24 | PC.NURSE ---
critical calcium called to
--- NOTE | 2023-03-22 15:33 | XR_ITS ---
FINAL REPORT CLINICAL HISTORY: cancer hypercalcemia COMPARISON: None FINDINGS: SINGLE VIEW CHEST The heart size is normal. The mediastinum is within normal limits. There are mild bibasilar opacities present, favor atelectasis.. There is no evidence of pneumothorax. The bony thorax is intact. IMPRESSION: Mild bibasilar opacities, favor atelectasis. Reviewed, Interpreted and Dictated by Rahul Lara III, MD Transcribed by Dayna Perez Authenticated and . [facility]
[2023-03-22 15:35] LABS: Basophils % 0.2 % (0.1-2.0); Eosinophils # 0.1 K/mm3 (0.0-0.4); Eosinophils % 0.4 % (0.1-12.0); Hematocrit 41.5 % (37.0-47.0); Hemoglobin 12.8 g/dL (12.2-16.2); Lymphocytes # 1.4 K/mm3 (0.7-4.5); Lymphocytes % 8.7 % (10-50); Mean Corpuscular Hemoglobin 25.4 pg (27.0-31.2); Mean Corpuscular Volume 81.9 fl (81-99); Mean Platelet Volume 8.6 fl (7.4-10.4); Monocytes # 0.8 K/mm3 (0.1-1.0); Monocytes % 4.9 % (1.7-9.3); Neutrophils # 13.4 K/mm3 (1.8-7.8); Neutrophils % 85.8 % (37.0-80.0); Platelet Count 733 K/mm3 (142-424); Red Blood Count 5.06 M/mm3 (4.20-5.40); Red Cell Distribution Width 14.3 % (11.5-17.5); White Blood Count 15.6 K/mm3 (4.8-10.8)
[2023-03-22 15:37] LABS: Troponin I < 0.01 ng/ml (0.00-0.034)
[2023-03-22 15:38] LABS: MANUAL DIFFERENTIAL MANUAL DIFFERENTIAL (MANUAL DIFF)
--- NOTE | 2023-03-22 15:40 | PC.NURSE ---
Dr. Gu at BS for pt eval
[2023-03-22 15:50] LABS: Lactate Dehydrogenase 322 U/L (313-618)
[2023-03-22 16:05] LABS: Intact Parathyroid Hormone 82.2 pg/mL (7.5-53.5)
--- NOTE | 2023-03-22 16:08 | PC.NURSE ---
RAD at BS
[2023-03-22 16:09] LABS: Eosinophils % 1 % (0-3); Lymphocytes % 9 % (10-50); Monocytes % 4 % (2-9); Neutrophils % 86 % (42-76); Total Cells Counted 100
[2023-03-22 16:11] LABS: Hypochromasia 1+; Platelet Estimate Moderate Increase
[2023-03-22 16:31] LABS: Lactic Acid 3.1 mmol/L (0.7-2.1)
--- NOTE | 2023-03-22 16:54 | PC.NURSE ---
Pt placed on bedpan
[2023-03-22 17:04] LABS: Phosphorous 3.1 mg/dl (2.5-4.5)
[2023-03-22 17:06] LABS: 25-OH Vitamin D, Total 35.3 ng/mL (30-100)
--- NOTE | 2023-03-22 17:15 | PC.NURSE ---
pt able to void at this time. Urine collected and sent to lab.
[2023-03-22 17:22] LABS: Microscopic, Urine URINE MICROSCOPIC (MICROSCOPIC)
--- NOTE | 2023-03-22 17:31 | EXP.HP ---
History of Present Illness *Admission Date: 03/22/23 *Reason for visit:: weakness *History of present illness: Ms. Morales is a 77-year-old female who was recently admitted 2 weeks ago [address] [facility] for weakness and fall. She had recently been diagnosed with a right-sided renal mass and was in the process of work-up for specific tissue diagnosis. She presents today to the ER via EMS after progressive weakness at home and a fall where she was unable to get up from the floor with the assistance of her daughter who is now living with her. She recently had a renal biopsy at [facility] on Wednesday with FNA performed to diagnose renal mass. History includes COPD, hypercalcemia, hyperlipidemia, hypertension, extensive smoking history. On arrival to the ER, patient is alert and oriented to self, but has been confused per family's report. She denies any nausea or vomiting, no fever or chills. Denies any diarrhea or constipation or abdominal pain. Is stable on room air. Initial labs concerning for elevated calcium, leukocytosis, and tachycardia. Symptoms suspicious for sepsis. Initiated on cefepime and vancomycin. Receiving fluid bolus. Medicine consulted for further management of her weakness and hypercalcemia. On interview with family and patient, family most concerned about her confusion and weakness. It is only progressed since her last visit. She previously was living independently until 2 weeks ago. Now has 01/02 care with her daughter, still necessitating significant assistance. Patient has fallen a few times over the past 2 to 3 days. Still complaining of left knee pain from previous fall. Using a walker with some benefit. Blood pressure more elevated today than it has been on past visits. Currently 170s/80s. Of note, patiently recently admitted from 03/06 through 03/08. Was diagnosed at that time with renal mass. Admitted for weakness, fall, confusion. Has since seen [facility] at for CT-guided biopsy of renal mass. Still awaiting tissue pathology.. Work-up at that time confirming infiltrative solid right renal mass, large conglomerate of retroperitoneal adenopathy extending from right diaphragmatic darryl to the aortic bifurcation, left supraclavicular and superior mediastinal metastatic adenopathy, and multiple left upper lobe pulmonary nodules. Patient's current differential diagnosis includes renal cell carcinoma, lymphoma, lung cancer. [facility] Disclaimer: The information contained in this section may have been updated after the patient was seen, as this information can be updated by other users. Medical History (Updated 03/22/23 @ 17:32 by Fantasma Hopson MD) COPD (chronic obstructive pulmonary disease) Hypercalcemia Hyperlipidemia Social History Smoking Status: Current every day smoker tobacco type: cigarettes packs per day: 1 alcohol intake: never substance use type: denies use current occupational status: retired and other Travel in the last 8 weeks: None household members: none housing: house lives independently: Yes caffeine: No Review of Systems Review of Systems Review of systems (narrative): 14 point review of systems performed, pertinent positives and negatives as per HPI Meds Home Medications and Allergies Home Medications Medication Instructions Recorded Confirmed Type polyethylene glycol 3350 17 17 g PO DAILY Constipation 03/07/23 03/16/23 History gram/dose oral powder acetaminophen 325 mg tablet 650 mg PO Q4HP PRN Fever Or Mild 03/08/23 03/16/23 Rx Pain (1-3) 30 days #0 tabs potassium chloride 20 mEq 20 meq PO BID 30 days #60 tabs 03/08/23 03/16/23 Rx tablet,extended release(part/cryst) nicotine See Rx Instructions transdermal 03/09/23 03/16/23 Rx 21mg/24hr-14mg/24hr-7mg/24hr daily .COMPLEX #56 patches transderm patches,sequentl fluticasone fur. 100 mcg-umeclid 1 inh inhalation DAILY #60 ea
[2023-03-22 17:36] LABS: Appearance,Urine SL CLOUDY (Clear); Bilirubin,Urine Negative (Negative); Blood, Urine Negative (Negative); Color,Urine YELLOW (Yellow); Glucose,Urine (UA) Negative (Negative); Ketones,Urine Negative (Negative); Leukocyte Esterase,Urine Negative (Negative); Nitrate,Urine Negative (Negative); Protein,Urine 1+ (Negative); Specific Gravity, Urine 1.025 (1.005-1.030); Urobilinogen,Urine 0.2 EU/dl (0.2)
--- NOTE | 2023-03-22 18:00 | PC.NURSE ---
called report to Jasmin SNEED on 2nd floor answered all questions
[2023-03-22 18:04] LABS: Bacteria,Urine 2+ /lpf; Squamous Epithelial Cell,Urine Occasional #/hpf (0-5); WBC,Urine Occasional #/hpf (0-3)
--- NOTE | 2023-03-22 18:08 | PC.NURSE ---
arrived by stretcher from ED
[2023-03-22 18:09] LABS: Lactate Dehydrogenase 338 U/L (313-618); Uric Acid 9.3 mg/dl (2.5-6.2)
--- NOTE | 2023-03-22 19:41 | PC.NURSE ---
Cedric Roth ONCOLOGIST notified that zoledronic acid is not available for administration, inquired about substitute medication, ONCOLOGIST to return call with orders.
[2023-03-22 20:13] LABS: Reflex Lactic Add Lactic Reflex
[2023-03-22 21:10] LABS: Lactic Acid Follow Up (RFLX 1) 2.7 mmol/L (0.7-2.1)
[2023-03-22 22:33] LABS: Reflex Lactic (2 hrs) Add Lactic Reflex
[2023-03-22 23:11] LABS: Lactic Acid Follow up (RFLX 2) 2.6 mmol/L (0.7-2.1)
[2023-03-23] VITALS: BP 176/76; PULSE 96; RESP 16; TEMP 36.8; O2SAT 94
[2023-03-23 04:00] VITALS: BP 157/71; PULSE 97; RESP 20; TEMP 36.8; O2SAT 90; BMI 20.6
[2023-03-23 06:47] LABS: Basophils % 0.1 % (0.1-2.0); Eosinophils # 0.1 K/mm3 (0.0-0.4); Eosinophils % 0.8 % (0.1-12.0); Hematocrit 36.5 % (37.0-47.0); Lymphocytes # 1.1 K/mm3 (0.7-4.5); Lymphocytes % 7.5 % (10-50); Mean Corpuscular HGB Conc 30.5 g/dL (31.8-35.4); Mean Corpuscular Hemoglobin 24.9 pg (27.0-31.2); Mean Corpuscular Volume 81.5 fl (81-99); Mean Platelet Volume 8.6 fl (7.4-10.4); Monocytes # 0.8 K/mm3 (0.1-1.0); Neutrophils # 13.1 K/mm3 (1.8-7.8); Neutrophils % 86.7 % (37.0-80.0); Platelet Count 542 K/mm3 (142-424); Red Blood Count 4.47 M/mm3 (4.20-5.40); Red Cell Distribution Width 14.3 % (11.5-17.5); White Blood Count 15.1 K/mm3 (4.8-10.8)
[2023-03-23 06:59] LABS: MANUAL DIFFERENTIAL MANUAL DIFFERENTIAL (MANUAL DIFF)
[2023-03-23 07:13] LABS: Alanine Aminotransferase 23 U/L (12-78); Albumin Level 2.8 g/dl (3.5-5.0); Albumin/Globulin Ratio 0.8 (1.1-1.8); Alkaline Phosphatase 87 U/L (38-126); Anion Gap 11.9 mEq/L (5-15); Aspartate Amino Transferase 33 U/L (14-36); Bilirubin,Total 0.3 mg/dl (0.2-1.3); Blood Urea Nitrogen 22 mg/dl (7-17); Calcium 10.7 mg/dl (8.4-10.2); Carbon Dioxide 26 mmol/L (22.0-30.0); Chloride 100 mmol/L (98-107); Creatinine Clearance Estimated 41 mL/min (50-200); Estimated Glomerular Filt Rate 61 ml/min (>60); GFR (African American) 74 ML/MIN (>60); Globulin 3.3 g/dL (1.3-3.2); Glucose 82 mg/dl (74-100); Magnesium 1.8 mg/dl (1.6-2.3); Phosphorous 2.5 mg/dl (2.5-4.5); Potassium 3.9 mmoL/L (3.5-5.1); Sodium 134 mmol/L (136-145); Total Protein,Serum 6.1 g/dl (6.3-8.2)
--- NOTE | 2023-03-23 07:59 | HMH.PHAINT1 ---
Pharmacy Intervention Comments: Medication history complete, medications verified with fill history. - Leti Hendricks, PharmD Candidate 2023
[2023-03-23 08:00] VITALS: BP 183/78; PULSE 102; RESP 24; TEMP 36.2; O2SAT 94; O2SAT 97
[2023-03-23 08:21] LABS: Lymphocytes % 9 % (10-50); Monocytes % 5 % (2-9); Neutrophils % 81 % (42-76); Total Cells Counted 100
[2023-03-23 08:22] LABS: Platelet Estimate Slight Increase; RBC Morphology Normal
[2023-03-23 08:43] LABS: Hemoglobin 11.3 g/dL (12.2-16.2)
--- NOTE | 2023-03-23 09:16 | PC.NURSE ---
Spoke with MD Hopson. Give Zoledronic acid 4 mg this AM.
--- NOTE | 2023-03-23 09:57 | HMH.OTEV ---
OT Inpatient Evaluation Rehab OT IP Evaluation Start: 03/22/23 18:12 Freq: ONCE Status: Active Protocol: Document 03/23/23 09:49 JENKIRK (Rec: 03/23/23 09:56 BONILLA [id number]) Rehab OT IP Assessment Subjective History Ms. Morales is a 77-year-old female who was recently admitted 2 weeks ago to [facility] for weakness and fall. She had recently been diagnosed with a right-sided renal mass and was in the process of work -up for specific tissue diagnosis. She presents today to the ER via EMS after progressive weakness at home and a fall where she was unable to get up from the floor with the assistance of her daughter who is now living with her. She recently had a renal biopsy at [facility] on Wednesday with FNA performed to diagnose renal mass. History includes COPD, hypercalcemia, hyperlipidemia, hypertension, extensive smoking history. On arrival to the ER, patient is alert and oriented to self, but has been confused per family's report. She denies any nausea or vomiting, no fever or chills. Denies any diarrhea or constipation or abdominal pain. Is stable on room air. Initial labs concerning for elevated calcium, leukocytosis, and tachycardia. Symptoms suspicious for sepsis. Initiated on cefepime and vancomycin. Receiving fluid bolus. Medicine consulted for further management of her weakness and hypercalcemia. On interview with family and patient, family most concerned about her confusion and weakness. It is only progressed since her last
--- NOTE | 2023-03-23 10:08 | HMH.PTEV ---
Physical Therapy Evaluation Rehab PT IP Evaluation Start: 03/22/23 18:12 Freq: ONCE Status: Active Protocol: Document 03/23/23 10:02 PIOTR (Rec: 03/23/23 10:08 PIOTR [id number]) Subjective/History History History 77 yowf adm to [facility] with Sepsis and hypokslemia. PMH of COPD, HLD, HTN, and possible multiple area metastatic cancer being treated at outside hospital. She reports she lives alone usually, but her daughter has been staying with her to provide 24 hr care over the past 2-3 weeks. She reports she uses a RW at home for all mobility at baseline. Subjective Subjective Pt reports no specific c/o, but is feeling more weak in general. New diagnosis of cancer in past 12 Yes months? Rehab PT IP Eval Objective Appearance Patient Behavior Appropriate Patient Orientation Person,Place,Time Difficulty following instructions none Speech Pattern Clear Ambulation Patient Able to Ambulate Yes Ambulation Observation IP General Gait Pattern Observation Shuffling Step Ambulation Distance (feet) 5 Ambulation Assistive Device Rolling Walker Ambulation Ability Minimal x 1 (25% assist) Balance Ability to Arise Able, uses arms to help Sitting Balance Leans or slides in chair Standing Balance Steady, wide stance Dynamic Sitting Balance Ability Fair Dynamic Standing Balance Ability Poor Transfers Bed Transfer Ability Minimal x 1 (25% assist) Chair Transfer Ability Minimal x 1 (25% assist) Sit to Stand Bed Transfer Ability Minimal x 1 (25% assist) Sit to Stand Chair Transfer Ability Minimal x 1 (25% assist) Rehab PT IP prob,goals,plan Problems Date of Evaluation: 03/23/23 PT IP Problems Bed Mobility,Transfers,Gait Rehab Potential Rehab Potential Good Plan PT Intervention Plan Bed Mobility,Transfers,Gait, Therapeutic Exercise PT Plan Frequency Daily Duration LOS Discharge Goals Bed Transfer Ability Contact Guard/Hand Hold Sit to Stand Chair Transfer Ability Contact Guard/Hand Hold Ambulation Assistive Device Rolling Walker Ambulation Distance (feet) 20 Discharge Plan PT Discharge Plan Pt is currently most appropriate for rehab
--- NOTE | 2023-03-23 10:57 | SW/DCPLANNER ---
Addendum entered by Sammie Pimentel 03/23/23 14:21: Patient discharged home today w/ daughter and son. Graciela fabian/ FRANCOISE stated that she will follow up w/ patient and family today. Addendum entered by Sammie Pimentel 03/23/23 11:34: Per MD after discussion w/ patient and son the decision was made to discharge home today and Hospice to follow up w/ patient at home later today or tomorrow. I will fax patient information to [facility] today. Patient will also need a hospital bed at home: I will inform Graciela OWUSU once patient information is reviewed. Original Note: I spoke with patient this AM regarding plans once medically stable for discharge. PT/OT evaluated patient and recommended SNF level of care. Patient stated that she resides at home w/ her daughter but her and family have recently been discussing placement. Patient stated that her son (Haim [phone]) assist patient w/ decision making. Patient requested that I call and speak w/ her son regarding placement. I attempted to contact Haim: no answer at this time/VM left.
--- NOTE | 2023-03-23 11:33 | EXP.DC.SUM ---
General Admission date:: 03/22/23 Discharge date: 03/23/23 HPI HPI HPI: Ms. Morales is a 77-year-old female who was recently admitted 2 weeks ago to [facility] for weakness and fall. She had recently been diagnosed with a right-sided renal mass and was in the process of work-up for specific tissue diagnosis. She presents today to the ER via EMS after progressive weakness at home and a fall where she was unable to get up from the floor with the assistance of her daughter who is now living with her. She recently had a renal biopsy at [facility] on Wednesday with FNA performed to diagnose renal mass. History includes COPD, hypercalcemia, hyperlipidemia, hypertension, extensive smoking history. On arrival to the ER, patient is alert and oriented to self, but has been confused per family's report. She denies any nausea or vomiting, no fever or chills. Denies any diarrhea or constipation or abdominal pain. Is stable on room air. Initial labs concerning for elevated calcium, leukocytosis, and tachycardia. Symptoms suspicious for sepsis. Initiated on cefepime and vancomycin. Receiving fluid bolus. Medicine consulted for further management of her weakness and hypercalcemia. On interview with family and patient, family most concerned about her confusion and weakness. It is only progressed since her last visit. She previously was living independently until 2 weeks ago. Now has 01/02 care with her daughter, still necessitating significant assistance. Patient has fallen a few times over the past 2 to 3 days. Still complaining of left knee pain from previous fall. Using a walker with some benefit. Blood pressure more elevated today than it has been on past visits. Currently 170s/80s. Of note, patiently recently admitted from 03/06 through 03/08. Was diagnosed at that time with renal mass. Admitted for weakness, fall, confusion. Has since seen [facility] at for CT-guided biopsy of renal mass. Still awaiting tissue pathology.. Work-up at that time confirming infiltrative solid right renal mass, large conglomerate of retroperitoneal adenopathy extending from right diaphragmatic darryl to the aortic bifurcation, left supraclavicular and superior mediastinal metastatic adenopathy, and multiple left upper lobe pulmonary nodules. Patient's current differential diagnosis includes renal cell carcinoma, lymphoma, lung cancer. Hospital Course Hospital Course Hospital Course: This is a 77-year-old female with PMHx of hyperlipidemia, hyperglycemia, and recent diagnosis of metastatic cancer of unknown primary source. Currently going through work-up at . Brought to the ER after falling and having increased weakness. Work-up positive for hypercalcemia, leukocytosis, SIRS criteria. Patient was admitted for hypercalcemia of malignancy, progression of her metastatic disease, failure to thrive. Calcium improved during admission. Goals of care discussion with family, patient wishes to go home. Family electing for hospice. Hospice consulted and will meet family at home for intake eval. Stable for discharge home. Problems addressed as follows during admission: SIRS -Meeting criteria with leukocytosis, tachycardia. No focal source of infection. Differential includes pneumonia, bacteremia, symptoms secondary to cancer. Leukocytosis remains elevated and patient had no focal signs of infection. Suspect leukocytosis secondary to possible lymphoma. Discontinue antibiotics, no indication to continue at this time. We will follow cultures after discharge. Hypercalcemia Weakness/frequent falls Hypercalcemia -Patient's calcium 12.3, up from 11.3 on last admission. hyperparathyroidism with PTH 82, PTH RP pending at discharge. Patient also has elevated uric acid level consistent with lymphoma/malignancy. We will treat hypercalcemia with 1 dose of zoledronic acid 4 mg IV. If becomes more confused, would recommend repeat CMP and calcium in the coming weeks.
[2023-03-23 12:00] VITALS: BP 146/88; PULSE 104; RESP 20; TEMP 36.4; O2SAT 94
[2023-03-29 12:16] LABS: PTH Related Peptide < 2.0
[2023-03-31 00:08] LABS: 1,25 Dihydroxy Vitamin D 22 pg/mL (.); 1,25-Dihydroxy, Vitamin D-2 <10 pg/mL (.); 1,25-Dihydroxy, Vitamin D-3 22 pg/mL (.)
== END 2023-03-23 14:00 | disposition hospice, home (50) ==
LOC: ER 17:30 → 2ND 17:32
PROVIDERS: Admitting Provider Internal Medicine Adolescent Medicine; Emergency Provider Emergency Medicine; PCP Emergency Medicine; Visit Provider Internal Medicine Adolescent Medicine
DX: E83.52 Hypercalcemia (principal); M62.81 Muscle weakness (generalized); M79.605 Pain in left leg; N28.89 Other specified disorders of kidney and ureter; E78.5 Hyperlipidemia, unspecified; F17.200 Nicotine dependence, unspecified, uncomplicated; J44.9 Chronic obstructive pulmonary disease, unspecified; I10 Essential (primary) hypertension; F17.210 Nicotine dependence, cigarettes, uncomplicated; C79.9 Secondary malignant neoplasm of unspecified site; C80.1 Malignant (primary) neoplasm, unspecified; R65.10 Systemic inflammatory response syndrome (SIRS) of non-infectious origin without acute organ dysfunction
CPT/HCPCS: 36415; 71045; 80053; 81001; 82306; 82397; 82652; 82803; 83605; 83615; 83735; 83970; 84100; 84484; 84550; 85007; 85025; 86850; 87040; 87086; 87088; 87186; 93005; 97163; 97165; 99285; G0378; J3370; J3489